=== PATIENT | female | born 1950 | race American Indian/Alaskan Native ===

== ENCOUNTER 2016-03-05 17:40 | Inpatient (IN) | payer OTHER ==
[2016-03-05 19:48] LABS: Urine Drugs of Abuse Note Disclamer
[2016-03-05 20:03] LABS: Bacteria,Urine 1+ /HPF (Negative); Bilirubin,Urine NEG (Negative); Blood,Urine MOD (Negative); Ketones,Urine 20 mg/dL (Negative); Leukocyte Esterase,Urine NEG (Negative); Mucus,Urine 2+ /HPF; Nitrite,Urine NEG (Negative); Protein,Urine <15 mg/dL mg/dL (Negative); Urobilinogen,Urine < 2.0 mg/dL (<2.0)
[2016-03-05 20:16] LABS: Basophils % (Auto) 0.8 % (0.0-1.8); Eosinophils % (Auto) 1.9 % (0.0-4.3); Hematocrit 39.1 % (30.3-42.9); Hemoglobin 13.1 gm/dl (10.1-14.3); Mean Corpuscular HGB Conc 33 % (30-34); Mean Corpuscular Hemoglobin 30 pg (28-32); Mean Corpuscular Volume 91 fl (79-97); Platelet Count 350 K/mm3 (140-440); Red Blood Count 4.32 M/mm3 (3.65-5.03); Red Cell Distribution Width 14.4 % (13.2-15.2); White Blood Count 9.8 K/mm3 (4.5-11.0)
[2016-03-05 20:41] LABS: Alanine Aminotransferase 13 units/L (7-56); Albumin 3.5 g/dL (3.9-5); Alkaline Phosphatase 134 units/L (35-129); BUN/Creatinine Ratio 14.44; Bilirubin,Total 0.9 mg/dL (0.1-1.2); Blood Urea Nitrogen 13 mg/dL (7-17); Calcium 10.3 mg/dL (8.4-10.2); Carbon Dioxide 21 mmol/L (22-30); Chloride 105.3 mmol/L (98-107); Glucose 101 mg/dL (65-100); Magnesium 1.8 mg/dL (1.7-2.3); Potassium 3.9 mmol/L (3.6-5.0); Sodium 143 mmol/L (137-145); Total Protein 6.9 g/dL (6.3-8.2)
[2016-03-05] MEDS ORDERED: BENADRYL IV ONE (20:42)
--- NOTE | 2016-03-05 20:59 | Emergency Department Report ---
ED Altered Mental Status HPI - General Chief Complaint: Altered Mental Status Stated Complaint: UNRESPONSIVE Time Seen by Provider: 03/05/16 20:04 Source: EMS Mode of arrival: Stretcher Limitations: Altered Mental Status - History of Present Illness Initial Comments: 65-year-old female with past medical history [id number] diabetes, GERD, hypertension, schizoaffective disorder, and bipolar presents to the hospital with altered mental status at patient's baseline she is usually yelling and screaming. Patient became less responsive today. Patient is not verbal in the ED therefore unable to provide any history of present illness. Per MAR patient has been on Cipro since March 03 for UTI. Patient also receiving a anti-psychotics. Leroy vital signs reported BP 172/89, pulse 109, sat 92%, respiratory rate 28 - Related Data Home Medications Medication Instructions Recorded Confirmed Last Taken Ciprofloxacin HCl [Ciprofloxacin 500 mg PO BID 03/05/16 03/05/16 03/05/16 TAB] Levothyroxine [Synthroid] 50 mcg PO QAM 03/05/16 03/05/16 Unknown [place] Carbonate 600 mg PO BID 03/05/16 03/05/16 Unknown Metoprolol [Lopressor TAB] 50 mg PO QAM 03/05/16 03/05/16 Unknown OLANzapine [ZyPREXA] 10 mg PO QHS 03/05/16 03/05/16 Unknown Olanzapine [ZyPREXA] 10 mg PO BID 03/05/16 03/05/16 Unknown Simvastatin [Zocor TAB] 10 mg PO QHS 03/05/16 03/05/16 Unknown Ziprasidone HCl [Geodon] 80 mg PO BID 03/05/16 03/05/16 Unknown Ziprasidone Mesylate [Geodon] 20 mg IM PRN PRN 03/05/16 03/05/16 Unknown amLODIPine [Norvasc] 5 mg PO DAILY 03/05/16 03/05/16 Unknown metFORMIN [Glucophage] 500 mg PO BID 03/05/16 03/05/16 Unknown Allergies Allergy/AdvReac Type Severity Reaction Status Date / Time No Known Allergies Allergy Verified 03/05/16 21:34 ED Review of Systems ROS: Stated complaint: UNRESPONSIVE Other details as noted in HPI Comment: Unobtainable due to pts medical conditions (ams) ED Past Medical Hx - Past Medical History Previous Medical History?: Yes Hx Hypertension: Yes Hx Diabetes: Yes Hx GERD: Yes Hx Psychiatric Treatment: Yes (bipolar) Additional medical history: Dyslipidemia Jv, schizoaffective disorder - Surgical History Past Surgical History?: Yes - Social History Smoking Status: Never Smoker Substance Use Type: None - Medications Home Medications: Home Medications Medication Instructions Recorded Confirmed Last Taken Type Ciprofloxacin HCl [Ciprofloxacin 500 mg PO BID 03/05/16 03/05/16 03/05/16 History TAB] Levothyroxine [Synthroid] 50 mcg PO QAM 03/05/16 03/05/16 Unknown History [place] Carbonate 600 mg PO BID 03/05/16 03/05/16 Unknown History Metoprolol [Lopressor TAB] 50 mg PO QAM 03/05/16 03/05/16 Unknown History OLANzapine [ZyPREXA] 10 mg PO QHS 03/05/16 03/05/16 Unknown History Olanzapine [ZyPREXA] 10 mg PO BID 03/05/16 03/05/16 Unknown History Simvastatin [Zocor TAB] 10 mg PO QHS 03/05/16 03/05/16 Unknown History Ziprasidone HCl [Geodon] 80 mg PO BID 03/05/16 03/05/16 Unknown History Ziprasidone Mesylate [Geodon] 20 mg IM PRN PRN 03/05/16 03/05/16 Unknown History amLODIPine [Norvasc] 5 mg PO DAILY 03/05/16 03/05/16 Unknown History metFORMIN [Glucophage] 500 mg PO BID 03/05/16 03/05/16 Unknown History ED Physical Exam - General Limitations: No Limitations, Altered Mental Status - Other Other exam information: General: Limited by mental status Head exam: Atraumatic, normocephalic Eyes exam: Pupils equal react fluttering eye motion ENT: Moist mucous membrane Neck exam: Normal inspection Respiratory exam: Clear to auscultation bilateral, no wheezes, rales, crackles Cardiovascular: Normal rate and rhythm, heart rate 95 Abdomen: Soft, nondistended, and nontender, with normal bowel sounds, no rebound, or guarding Extremity: Full range of motion normal inspection no deformity Back: Normal Inspection, full range of motion, no tenderness Neurologic: Limited response. Open eyes to command. Squeeze hand to command. When not moving extremities to command. A of eyelids questionable dystonic reaction Psychiatric: See neurologic exam Skin: Warm, dry, intact ED Course Vital Signs 03/05/16 03/05/16 03/06/16 19:27 20:29 01:36 Temperature 98.9 F Pulse Rate 102 H 105 H Respiratory 18 18 Rate Blood Pressure 153/87 Blood Pressure 146/86 [Right] O2 Sat by Pulse 96 99 100 Oximetry - Reevaluation(s) Reevaluation #1: 03/05/16 21:04 Benadryl 50mg IV ordered and treatment of possible dystonic reaction - Lab Data Result diagrams: 03/05/16 20:02 03/05/16 20:02 Lab Results 03/05/16 03/05/16 03/05/16 Range/Units 19:34 19:43 19:43 WBC (4.5-11.0) K/mm3 RBC (3.65-5.03) M/mm3 Hgb (10.1-14.3) gm/dl Hct (30.3-42.9) % MCV (79-97) fl MCH (28-32) pg MCHC (30-34) % RDW (13.2-15.2) % Plt Count (140-440) K/mm3 Lymph % (Auto) (13.4-35.0) % [place] % (Auto) (0.0-7.3) % Eos % (Auto) (0.0-4.3) % Baso % (Auto) (0.0-1.8) % Lymph # (1.2-5.4) K/mm3 [place] # (0.0-0.8) K/mm3 Eos # (0.0-0.4) K/mm3 Baso # (0.0-0.1) K/mm3 Seg Neutrophils % (40.0-70.0) % Seg Neutrophils # (1.8-7.7) K/mm3 Sodium (137-145) mmol/L Potassium (3.6-5.0) mmol/L Chloride (98-107) mmol/L Carbon Dioxide (22-30) mmol/L Anion Gap mmol/L BUN (7-17) mg/dL Creatinine (0.7-1.2) mg/dL Estimated GFR ml/min BUN/Creatinine Ratio % Glucose (65-100) mg/dL Lactic Acid (0.7-2.0) mmol/L Calcium (8.4-10.2) mg/dL Magnesium (1.7-2.3) mg/dL Total Bilirubin (0.1-1.2) mg/dL AST (5-40) units/L ALT (7-56) units/L Alkaline Phosphatase (35-129) units/L Total Protein (6.3-8.2) g/dL Albumin (3.9-5) g/dL Albumin/Globulin Ratio % TSH (0.270-4.200) mlU/mL Urine Color Yellow (Yellow) Urine Turbidity Slightly-cloudy (Clear) Urine pH 5.0 (5.0-7.0) Ur Specific [place] 1.021 (1.003-1.030) Urine Protein <15 mg/dl (Negative) mg/dL Urine Glucose (UA) Neg (Negative) mg/dL Urine Ketones 20 (Negative) mg/dL Urine Blood Mod (Negative) Urine Nitrite Neg (Negative) Urine Bilirubin Neg (Negative) Urine Urobilinogen < 2.0 (<2.0) mg/dL Ur Leukocyte Esterase Neg (Negative) Urine WBC (Auto) 7.0 H (0.0-6.0) /HPF Urine RBC (Auto) 3.0 (0.0-6.0) /HPF U Epithel Cells (Auto) 3.0 (0-13.0) /HPF Urine Bacteria (Auto) 1+ (Negative) /HPF Hyaline Casts 1 /LPF Urine Mucus 2+ /HPF Urine HCG, Qual Negative (Negative) Salicylates < 0.3 L (2.8-20.0) mg/dL Urine Opiates Screen Presumptive negative Urine Methadone Screen Presumptive negative Acetaminophen (10.0-30.0) ug/mL Ur Barbiturates Screen Presumptive negative Ur Phencyclidine Scrn Presumptive negative Ur Amphetamines Screen Presumptive negative U Benzodiazepines Scrn Presumptive negative Urine Cocaine Screen Presumptive negative U Marijuana (THC) Screen Presumptive negative Drugs of Abuse Note Disclamer Plasma/Serum Alcohol (0-0.07) gm% 03/05/16 03/05/16 03/05/16 Range/Units 20:02 20:02 20:02 WBC 9.8 (4.5-11.0) K/mm3 RBC 4.32 (3.65-5.03) M/mm3 Hgb 13.1 (10.1-14.3) gm/dl Hct 39.1 (30.3-42.9) % MCV 91 (79-97) fl MCH 30 (28-32) pg MCHC 33 (30-34) % RDW 14.4 (13.2-15.2) % Plt Count 350 (140-440) K/mm3 Lymph % (Auto) 13.5 (13.4-35.0) % [place] % (Auto) 8.3 H (0.0-7.3) % Eos % (Auto) 1.9 (0.0-4.3) % Baso % (Auto) 0.8 (0.0-1.8) % Lymph # 1.3 (1.2-5.4) K/mm3 Routt # 0.8 (0.0-0.8) K/mm3 Eos # 0.2 (0.0-0.4) K/mm3 Baso # 0.1 (0.0-0.1) K/mm3 Seg Neutrophils % 75.5 H (40.0-70.0) % Seg Neutrophils # 7.4 (1.8-7.7) K/mm3 Sodium 143 (137-145) mmol/L Potassium 3.9 (3.6-5.0) mmol/L Chloride 105.3 (98-107) mmol/L Carbon Dioxide 21 L (22-30) mmol/L Anion Gap 21 mmol/L BUN 13 (7-17) mg/dL Creatinine 0.9 (0.7-1.2) mg/dL Estimated GFR > 60 ml/min BUN/Creatinine Ratio 14.44 % Glucose 101 H (65-100) mg/dL Lactic Acid 1.4 (0.7-2.0) mmol/L Calcium 10.3 H (8.4-10.2) mg/dL Magnesium 1.8 (1.7-2.3) mg/dL Total Bilirubin 0.9 (0.1-1.2) mg/dL AST 16 (5-40) units/L ALT 13 (7-56) units/L Alkaline Phosphatase 134 H (35-129) units/L Total Protein 6.9 (6.3-8.2) g/dL Albumin 3.5 L (3.9-5) g/dL Albumin/Globulin Ratio 1.0 % TSH (0.270-4.200) mlU/mL Urine Color (Yellow) Urine Turbidity (Clear) Urine pH (5.0-7.0) Ur Specific [place] (1.003-1.030) Urine Protein (Negative) mg/dL Urine Glucose (UA) (Negative) mg/dL Urine Ketones (Negative) mg/dL Urine Blood (Negative) Urine Nitrite (Negative) Urine Bilirubin (Negative) Urine Urobilinogen (<2.0) mg/dL Ur Leukocyte Esterase (Negative) Urine WBC (Auto) (0.0-6.0) /HPF Urine RBC (Auto) (0.0-6.0) /HPF U Epithel Cells (Auto) (0-13.0) /HPF Urine Bacteria (Auto) (Negative) /HPF Hyaline Casts /LPF Urine Mucus /HPF Urine HCG, Qual (Negative) Salicylates (2.8-20.0) mg/dL Urine Opiates Screen Urine Methadone Screen Acetaminophen (10.0-30.0) ug/mL Ur Barbiturates Screen Ur Phencyclidine Scrn Ur Amphetamines Screen U Benzodiazepines Scrn Urine Cocaine Screen U Marijuana (THC) Screen Drugs of Abuse Note Plasma/Serum Alcohol (0-0.07) gm% 03/05/16 03/05/16 03/05/16 Range/Units 20:02 20:02 20:02 WBC (4.5-11.0) K/mm3 RBC (3.65-5.03) M/mm3 Hgb (10.1-14.3) gm/dl Hct (30.3-42.9) % MCV (79-97) fl MCH (28-32) pg MCHC (30-34) % RDW (13.2-15.2) % Plt Count (140-440) K/mm3 Lymph % (Auto) (13.4-35.0) % Routt % (Auto) (0.0-7.3) % Eos % (Auto) (0.0-4.3) % Baso % (Auto) (0.0-1.8) % Lymph # (1.2-5.4) K/mm3 Routt # (0.0-0.8) K/mm3 Eos # (0.0-0.4) K/mm3 Baso # (0.0-0.1) K/mm3 Seg Neutrophils % (40.0-70.0) % Seg Neutrophils # (1.8-7.7) K/mm3 Sodium (137-145) mmol/L Potassium (3.6-5.0) mmol/L Chloride (98-107) mmol/L Carbon Dioxide (22-30) mmol/L Anion Gap mmol/L BUN (7-17) mg/dL Creatinine (0.7-1.2) mg/dL Estimated GFR ml/min BUN/Creatinine Ratio % Glucose (65-100) mg/dL Lactic Acid (0.7-2.0) mmol/L Calcium (8.4-10.2) mg/dL Magnesium (1.7-2.3) mg/dL Total Bilirubin (0.1-1.2) mg/dL AST (5-40) units/L ALT (7-56) units/L Alkaline Phosphatase (35-129) units/L Total Protein (6.3-8.2) g/dL Albumin (3.9-5) g/dL Albumin/Globulin Ratio % TSH 5.160 H (0.270-4.200) mlU/mL Urine Color (Yellow) Urine Turbidity (Clear) Urine pH (5.0-7.0) Ur Specific [place] (1.003-1.030) Urine Protein (Negative) mg/dL Urine Glucose (UA) (Negative) mg/dL Urine Ketones (Negative) mg/dL Urine Blood (Negative) Urine Nitrite (Negative) Urine Bilirubin (Negative) Urine Urobilinogen (<2.0) mg/dL Ur Leukocyte Esterase (Negative) Urine WBC (Auto) (0.0-6.0) /HPF Urine RBC (Auto) (0.0-6.0) /HPF U Epithel Cells (Auto) (0-13.0) /HPF Urine Bacteria (Auto) (Negative) /HPF Hyaline Casts /LPF Urine Mucus /HPF Urine HCG, Qual (Negative) Salicylates (2.8-20.0) mg/dL Urine Opiates Screen Urine Methadone Screen Acetaminophen < 15.0 (10.0-30.0) ug/mL Ur Barbiturates Screen Ur Phencyclidine Scrn Ur Amphetamines Screen U Benzodiazepines Scrn Urine Cocaine Screen U Marijuana (THC) Screen Drugs of Abuse Note Plasma/Serum Alcohol < 0.01 (0-0.07) gm% - EKG Data -: EKG Interpreted by Me (sinus tach 101 LVH right atrial enlargement) When compared to previous EKG there are: previous EKG unavailable - Radiology Data Radiology results: report reviewed (ct head: subacute to chronic ischemic changes or suspected in the left insula) - Medical Decision Making And to admit the patient to hospital for acute altered mental status. CT shows subacute to chronic infarct. Patient, Rocephin for pressure treated UTI. Aspirin and Benadryl given in the ED - Differential Diagnosis dystonic reaction, sepsis, intracranial hemorrhage, encephalopathy Critical Care Time: No Critical care attestation.: If time is entered above; I have spent that time in minutes in the direct care of this critically ill patient, excluding procedure time. ED Disposition Clinical Impression: Diabetes, UTI (urinary tract infection) Altered mental status Qualifiers: Altered mental status type: unspecified Qualified Code(s): R41.82 - Altered mental status, unspecified Schizoaffective disorder Qualifiers: Schizoaffective disorder type: unspecified Qualified Code(s): F25.9 - Schizoaffective disorder, unspecified Bipolar disorder Qualifiers: Current episode severity: unspecified CVA (cerebral vascular accident) Qualifiers: CVA mechanism: unspecified Qualified Code(s): I63.9 - Cerebral infarction, unspecified HTN (hypertension) Qualifiers: Hypertension type: essential hypertension Qualified Code(s): I10 - Essential ( primary) hypertension Disposition: OP ADMITTED IP TO THIS HOSP Is pt being admited?: Yes Does the pt Need Aspirin: Yes Condition: Stable Time of Disposition: 21:57 (Dr Hughes/hosp)
[2016-03-05 21:20] LABS: Anion Gap 21 mmol/L
--- NOTE | 2016-03-05 21:21 | Cat Scan Report ---
FINAL REPORT PROCEDURE: CT HEAD/BRAIN WO CON TECHNIQUE: Computerized tomography of the head was performed without contrast material. HISTORY: ams COMPARISON: No prior studies are available for comparison. FINDINGS: No calvarial fracture is seen. Visualized portions of the paranasal sinuses and mastoid air cells are clear. Cerebral ventricles are normal in size. Subacute to chronic ischemic changes are seen in the left insula and there may be compensatory mild enlargement of the left sylvian fissure. No acute intracranial hemorrhage or mass effect is seen. IMPRESSION: Subacute to chronic ischemic changes are suspected in the left insula.
[2016-03-05] MEDS ORDERED: BENADRYL ONE (21:30)
[2016-03-05] MEDS ORDERED: ROCEPHIN/NS 1 GM/50 ML 50 ML IV ONE (21:52)
[2016-03-05] MEDS ORDERED: ASPIRIN PR ONE (21:54)
--- NOTE | 2016-03-05 22:05 | History and Physical Report ---
History of Present Illness Chief complaint: Confusion History of present illness: 65 YO Female admitted to [facility] with Bipolar, Shizoaffective Disorder, DM, HTN, GERD, HLD presents to ED for evaluation. Pt found to have confusion as per nursing staff. At patient's baseline- she is verbal and able to communicate. Patient became less responsive today. Patient Unable to provide history, History taken from ED staff and medical records. No reports of fever, chills, CP, palpitations, NVD, loos stools, or recent ill contacts. Past History Past Medical History: diabetes, GERD, hypertension, hyperlipidemia, other ( bipolar, schizoaffective disorder) Past Surgical History: No surgical history, Other (reviewed) Social history: single. denies: smoking, alcohol abuse, prescription drug abuse Medications and Allergies Allergies Allergy/AdvReac Type Severity Reaction Status Date / Time No Known Allergies Allergy Verified 03/05/16 21:34 Home Medications Medication Instructions Recorded Confirmed Last Taken Type Ciprofloxacin HCl [Ciprofloxacin 500 mg PO BID 03/05/16 03/05/16 03/05/16 History TAB] Levothyroxine [Synthroid] 50 mcg PO QAM 03/05/16 03/05/16 Unknown History [place] Carbonate 600 mg PO BID 03/05/16 03/05/16 Unknown History Metoprolol [Lopressor TAB] 50 mg PO QAM 03/05/16 03/05/16 Unknown History OLANzapine [ZyPREXA] 10 mg PO QHS 03/05/16 03/05/16 Unknown History Olanzapine [ZyPREXA] 10 mg PO BID 03/05/16 03/05/16 Unknown History Simvastatin [Zocor TAB] 10 mg PO QHS 03/05/16 03/05/16 Unknown History Ziprasidone HCl [Geodon] 80 mg PO BID 03/05/16 03/05/16 Unknown History Ziprasidone Mesylate [Geodon] 20 mg IM PRN PRN 03/05/16 03/05/16 Unknown History amLODIPine [Norvasc] 5 mg PO DAILY 03/05/16 03/05/16 Unknown History metFORMIN [Glucophage] 500 mg PO BID 03/05/16 03/05/16 Unknown History Active Meds: Active Medications Ceftriaxone Sodium (Rocephin/Ns 1 Gm/50 Ml) 50 mls @ 100 mls/hr IV ONCE ONE Stop: 03/05/16 22:21 Review of Systems ROS unobtainable: due to mental status Exam - Constitutional Vitals: Temp Pulse Resp BP Pulse Ox 98.9 F 102 H 18 153/87 99 03/05/16 19:27 03/05/16 19:27 03/05/16 20:29 03/05/16 19:27 03/05/16 20:29 General appearance: Present: obese - EENT Eyes: Present: PERRL ENT: hearing intact, clear oral mucosa - Neck Neck: Present: supple, normal ROM - Respiratory Respiratory effort: normal Respiratory: bilateral: CTA - Cardiovascular Heart Sounds: Present: S1 & S2. Absent: rub, click - Extremities Extremities: pulses symmetrical, No edema Peripheral Pulses: within normal limits - Abdominal General gastrointestinal: Present: soft, non-tender, non-distended, normal bowel sounds Female genitourinary: Present: normal - Integumentary Integumentary: Present: clear, warm, dry - Musculoskeletal Musculoskeletal: gait normal, strength equal bilaterally - Psychiatric Psychiatric: no intact judgment & insight, no memory intact - Neurologic Neurologic: CNII-XII intact, moves all extremities, no gait normal Results - Labs CBC & Chem 7: 03/05/16 20:02 03/06/16 06:02 Labs: Abnormal lab results 03/05/16 03/05/16 03/05/16 Range/Units 19:34 19:43 20:02 [place] % (Auto) 8.3 H (0.0-7.3) % Seg Neutrophils % 75.5 H (40.0-70.0) % Carbon Dioxide (22-30) mmol/L Glucose (65-100) mg/dL Calcium (8.4-10.2) mg/dL Alkaline Phosphatase (35-129) units/L Albumin (3.9-5) g/dL TSH (0.270-4.200) mlU/mL Urine WBC (Auto) 7.0 H (0.0-6.0) /HPF Salicylates < 0.3 L (2.8-20.0) mg/dL 03/05/16 03/05/16 Range/Units 20:02 20:02 [place] % (Auto) (0.0-7.3) % Seg Neutrophils % (40.0-70.0) % Carbon Dioxide 21 L (22-30) mmol/L Glucose 101 H (65-100) mg/dL Calcium 10.3 H (8.4-10.2) mg/dL Alkaline Phosphatase 134 H (35-129) units/L Albumin 3.5 L (3.9-5) g/dL TSH 5.160 H (0.270-4.200) mlU/mL Urine WBC (Auto) (0.0-6.0) /HPF Salicylates (2.8-20.0) mg/dL Assessment and Plan - Patient Problems (1) UTI (urinary tract infection) Current Visit: Yes Status: Acute Plan to address problem: IV abx, ivf, supportive care, (2) Bipolar disorder Current Visit: Yes Status: Acute Qualifiers: Current episode severity: unspecified Plan to address problem: psych consulted, resume home medication (3) Diabetes Current Visit: Yes Status: Acute Plan to address problem: ADA diet, insulin, accu check (4) HTN (hypertension) Current Visit: Yes Status: Acute Qualifiers: Hypertension type: essential hypertension Qualified Code(s): I10 - Essential (primary) hypertension Plan to address problem: monitor bp q shift, (5) Schizoaffective disorder Current Visit: Yes Status: Acute Qualifiers: Schizoaffective disorder type: unspecified Qualified Code(s): F25.9 - Schizoaffective disorder, unspecified Plan to address problem: psych consulted, (6) DVT prophylaxis Current Visit: Yes Status: Acute
[2016-03-05] MEDS ORDERED: TYLENOL PO PRN (22:08)
[2016-03-05] MEDS ORDERED: APRESOLINE IV PRN (22:11)
[2016-03-05] MEDS ORDERED: ATIVAN IV PRN (22:13)
[2016-03-06] MEDS ORDERED: TYLENOL PR ONE (00:06)
[2016-03-06] MEDS ORDERED: ASPIRIN PR ONE (00:09)
--- NOTE | 2016-03-06 02:34 | Admit Criteria Form ---
Admission Criteria Documentation: MENTAL STATUS CHANGE Clinical Indications for Inpatient Care (Place 'X' for any and all applicable criteria): Ongoing inpatient care may be needed for ANY ONE of the following(1)(2)(3)(5)(6) : [X ]I. Suspected serious etiology (eg, medical disorder, [employer] event) of mental status change [ ]II. Danger to self or others not manageable at lower level of care [ ]III. Grave disability (eg, inability to perform self care necessary at lower level of care) [ ]IV. Agitation or inappropriate behavior interfering with care for primary condition (eg, attempting to discontinue lines or drains prematurely, unable to cooperate with respiratory care) [ ]V. Delirium [A] [D][E] as described by ANY ONE of the following(26): [ ]a) Delirium due to alcohol or sedative [F] withdrawal [ ]b) Delirium of uncertain etiology that has not responded to appropriate empiric treatment [ ]c) Delirium that prevents performance of a life-sustaining function (eg, feeding or hydrating oneself) [ ]. General contraindications and/or Inappropriate clinical situations for Observational Care in patients with Mental Status Change, when ANY ONE of the following is required: [ ]a) Prediction of prolongation of LOS based on ANY ONE of the following may be considered as a contraindication for observational care 2, 3, 4, 5, 6, 7, 8, 9, 10, 11 [ ]i) Age > 65 yrs. [ ]ii) Patient arriving by ambulance [ ]iii) Patient with high acuity [ ]iv) Patient requiring vital sign monitoring [ ]v) Patient on IV medication [ ]b) Systolic blood pressures 180mmHg 3,12 [ ]c) Patient with altered mental status including delirium and other alteration of consciousness, (3) [ ]d) Patient whose discharge disposition will be to a senior living home or rehabilitation home should not be managed in Emergency Department Observation Unit. CMS rule requires 3 days hospital stay before such placement.3,13 [ ]e) Patient with failure to thrive due to broad array of etiologies 3,16,17 [ ]f) Inability to ambulate 3,14 Extended stay beyond goal length of stay for the primary condition may be needed until ALL of the following are present(3)(5): [ ]a) Underlying medical etiology of mental status change is absent, or has been established and adequately treated [ ]b) Danger to self or others is absent or manageable at lower level of care. [ ]c) Behavior crisis management, including physical or chemical restraints, is not required or available at lower level of car [ ]d) Substance or alcohol withdrawal is absent or manageable at lower level of care. [ ]e) Behavioral symptoms (eg, agitation, somnolence, inappropriate behavior) are absent, or are manageable at lower level of care. The original [facility] content created by [facility] has been revised. The portions of the content which have been revised are identified through the use of italic text or in bold, and [facility] has neither reviewed nor approved the modified material. All other unmodified content is copyright [facility]. Please see references footnoted in the original [facility] edition 2016
[2016-03-06 07:31] LABS: Anion Gap 25 mmol/L; BUN/Creatinine Ratio 17.77; Blood Urea Nitrogen 16 mg/dL (7-17); Calcium 10.7 mg/dL (8.4-10.2); Carbon Dioxide 21 mmol/L (22-30); Chloride 105.1 mmol/L (98-107); Glucose 108 mg/dL (65-100); Sodium 147 mmol/L (137-145)
--- NOTE | 2016-03-06 14:57 | Progress Note ---
Assessment and Plan Assessment and plan: Patient is 65-year-old woman from [facility] with a history of diabetes mellitus type 2, hypertension, hypothyroidism, schizoaffective and bipolar disorder who presents with altered mental status. Her baseline mental status is yelling and screaming now she is nonverbal. She was been treated for UTI with Cipro at the psych facility; therefore. IV Rocephin was started. 03/15 CT head without contrast: Subacute to chronic ischemic changes are suspected in the left insula. There is no history of prior stroke, no prior records in our electronic medical records. Pulse ox this morning dropped to 87 % on room air, patient was given oxygen, pulse ox increased to 96%. She was having dystonic type movements in ED and was IV Benadryl in the emergency department. She is tachycardic. Ordered stat EKG and remote telemetry. 1. Altered mental status with acute encephalopathy, present on admission 2. Acute CVA with infarct suspected: MRI brain, check lipids swallow screen, echo, carotid Dopplers physical therapy, no neurologist available this weekend. 3. Acute hypoxic respiratory failure, present on admission: Treated with oxygen 4. Bipolar and schizoaffective disorder: Psych has been consulted, hold antipsychotics due to dyskinesia 5. DVT prophylaxis: scd Full code Disposition: Continue inpatient care History Interval history: Patient seen and examined. Follow up on AMS. Overnight uneventful. No cp, sob, n /v or severe headaches. Imaging, old records, testing, labs, nursing notes reviewed. Hospitalist Physical - Physical exam Narrative exam: GEN: ill appearing drooling NAD, somnolent HEENT: NCAT, left downward eye gaze, NECK: SUPPLE, NO THYROMEGALY, NO JVD, NO LAD CVS: tachycardic, NORMAL S1S2 LUNGS/CHEST: CTA B, NORMAL CHEST EXPANSION B, GOOD AIR ENTRY B ABD: SOFT NTND, GBS, NO REBOUND OR GUARDING EXT/SKIN: NO SIGNIFICANT EDEMA OR RASH MSK: facial dystonia/flexing NEURO: CN 2-12 GROSSLY INTACT, not following commands PSY: confused - Constitutional Vitals: Temp Pulse Resp BP Pulse Ox 99.2 F 150 H 24 145/72 94 03/06/16 08:23 03/06/16 08:23 03/06/16 08:30 03/06/16 08:23 03/06/16 08:53 General appearance: Present: obese Results - Labs CBC & Chem 7: 03/05/16 20:02 03/06/16 06:02 Labs: Laboratory Last Values WBC 9.8 K/mm3 (4.5-11.0) 03/05/16 20:02 RBC 4.32 M/mm3 (3.65-5.03) 03/05/16 20:02 Hgb 13.1 gm/dl (10.1-14.3) 03/05/16 20:02 Hct 39.1 % (30.3-42.9) 03/05/16 20:02 MCV 91 fl (79-97) 03/05/16 20:02 MCH 30 pg (28-32) 03/05/16 20:02 MCHC 33 % (30-34) 03/05/16 20:02 RDW 14.4 % (13.2-15.2) 03/05/16 20:02 Plt Count 350 K/mm3 (140-440) 03/05/16 20:02 Lymph % (Auto) 13.5 % (13.4-35.0) 03/05/16 20:02 [place] % (Auto) 8.3 % (0.0-7.3) H 03/05/16 20:02 Eos % (Auto) 1.9 % (0.0-4.3) 03/05/16 20:02 Baso % (Auto) 0.8 % (0.0-1.8) 03/05/16 20:02 Lymph # 1.3 K/mm3 (1.2-5.4) 03/05/16 20:02 [place] # 0.8 K/mm3 (0.0-0.8) 03/05/16 20:02 Eos # 0.2 K/mm3 (0.0-0.4) 03/05/16 20:02 Baso # 0.1 K/mm3 (0.0-0.1) 03/05/16 20:02 Seg Neutrophils % 75.5 % (40.0-70.0) H 03/05/16 20:02 Seg Neutrophils # 7.4 K/mm3 (1.8-7.7) 03/05/16 20:02 Sodium 147 mmol/L (137-145) H 03/06/16 06:02 Potassium 4.0 mmol/L (3.6-5.0) 03/06/16 06:02 Chloride 105.1 mmol/L (98-107) 03/06/16 06:02 Carbon Dioxide 21 mmol/L (22-30) L 03/06/16 06:02 Anion Gap 25 mmol/L 03/06/16 06:02 BUN 16 mg/dL (7-17) 03/06/16 06:02 Creatinine 0.9 mg/dL (0.7-1.2) 03/06/16 06:02 Estimated GFR > 60 ml/min 03/06/16 06:02 BUN/Creatinine Ratio 17.77 % 03/06/16 06:02 Glucose 108 mg/dL (65-100) H 03/06/16 06:02 POC Glucose 95 (70-105) 03/06/16 06:26 Lactic Acid 1.6 mmol/L (0.7-2.0) 03/05/16 22:35 Calcium 10.7 mg/dL (8.4-10.2) H 03/06/16 06:02 Magnesium 1.8 mg/dL (1.7-2.3) 03/05/16 20:02 Total Bilirubin 0.9 mg/dL (0.1-1.2) 03/05/16 20:02 AST 16 units/L (5-40) 03/05/16 20:02 ALT 13 units/L (7-56) 03/05/16 20:02 Alkaline Phosphatase 134 units/L (35-129) H 03/05/16 20:02 Total Protein 6.9 g/dL (6.3-8.2) 03/05/16 20:02 Albumin 3.5 g/dL (3.9-5) L 03/05/16 20:02 Albumin/Globulin Ratio 1.0 % 03/05/16 20:02 TSH 5.160 mlU/mL (0.270-4.200) H 03/05/16 20:02 Urine Color Yellow (Yellow) 03/05/16 19:43 Urine Turbidity Slightly-cloudy (Clear) 03/05/16 19:43 Urine pH 5.0 (5.0-7.0) 03/05/16 19:43 Ur Specific [place] 1.021 (1.003-1.030) 03/05/16 19:43 Urine Protein <15 mg/dl mg/dL (Negative) 03/05/16 19:43 Urine Glucose (UA) Neg mg/dL (Negative) 03/05/16 19:43 Urine Ketones 20 mg/dL (Negative) 03/05/16 19:43 Urine Blood Mod (Negative) 03/05/16 19:43 Urine Nitrite Neg (Negative) 03/05/16 19:43 Urine Bilirubin Neg (Negative) 03/05/16 19:43 Urine Urobilinogen < 2.0 mg/dL (<2.0) 03/05/16 19:43 Ur Leukocyte Esterase Neg (Negative) 03/05/16 19:43 Urine WBC (Auto) 7.0 /HPF (0.0-6.0) H 03/05/16 19:43 Urine RBC (Auto) 3.0 /HPF (0.0-6.0) 03/05/16 19:43 U Epithel Cells (Auto) 3.0 /HPF (0-13.0) 03/05/16 19:43 Urine Bacteria (Auto) 1+ /HPF (Negative) 03/05/16 19:43 Hyaline Casts 1 /LPF 03/05/16 19:43 Urine Mucus 2+ /HPF 03/05/16 19:43 Urine HCG, Qual Negative (Negative) 03/05/16 19:43 Salicylates < 0.3 mg/dL (2.8-20.0) L 03/05/16 19:34 Urine Opiates Screen Presumptive negative 03/05/16 19:43 Urine Methadone Screen Presumptive negative 03/05/16 19:43 Acetaminophen < 15.0 ug/mL (10.0-30.0) 03/05/16 20:02 Ur Barbiturates Screen Presumptive negative 03/05/16 19:43 Ur Phencyclidine Scrn Presumptive negative 03/05/16 19:43 Ur Amphetamines Screen Presumptive negative 03/05/16 19:43 U Benzodiazepines Scrn Presumptive negative 03/05/16 19:43 Urine Cocaine Screen Presumptive negative 03/05/16 19:43 U Marijuana (THC) Screen Presumptive negative 03/05/16 19:43 Drugs of Abuse Note Disclamer 03/05/16 19:43 Plasma/Serum Alcohol < 0.01 gm% (0-0.07) 03/05/16 20:02
--- NOTE | 2016-03-06 16:57 | Magnetic Resonance Report ---
FINAL REPORT PROCEDURE: MR MRA/MRV HEAD WO CON TECHNIQUE: Axial 3-D [id number] MR angiography of the [place] and brain was performed. The source images were reconstructed in various views using maximum intensity projection. HISTORY: stroke COMPARISON: None FINDINGS: Motion limits the study despite repeat imaging. Vertebral arteries appear codominant without suggestion of significant stenosis. Posterior communicating arteries are not seen and anterior communicating artery is not identified but this may be from motion. All of the attempts at imaging suggest diminished signal in the right ICA in the cavernous region that may represent mild stenosis here. Likely very minimal narrowing of the left ICA is seen in the left cavernous region. Motion artifact likely causes loss of signal in the ICAs at the level of the skullbase bilaterally. Distal MCA and TOYIN branches are not well evaluated due to the motion. No obvious aneurysm is seen. 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 Motion limits this exam.
--- NOTE | 2016-03-06 17:18 | Magnetic Resonance Report ---
FINAL REPORT PROCEDURE: MR BRAIN WO CON TECHNIQUE: Magnetic resonance imaging of the brain was performed without contrast material. HISTORY: stroke COMPARISON: CT exam from March 05, 2016 FINDINGS: Cerebellar tonsils are normally positioned. Cerebral ventricles are normal in size. No areas of restricted diffusion are seen. Motion limits the study. Minimal increased T2 signal is seen in the left insula possibly due to old ischemic changes. A few other punctate foci of increased T2 signal are seen in the periventricular white matter likely due to chronic small vessel ischemic changes. No evidence of intracranial hemorrhage is seen. No fluid is seen in the paranasal sinuses or mastoid air cells. IMPRESSION: Mild old ischemic changes are seen without evidence of acute abnormality.
[2016-03-06] MEDS: ASPIRIN PO SCH (17:39)
[2016-03-06] MEDS: ROCEPHIN/NS 1 GM/50 ML 50 ML IV SCH (22:58)
[2016-03-06] MEDS: HEPARIN SUB-Q SCH (22:59)
[2016-03-07] MEDS: ATIVAN IV PRN (00:52)
[2016-03-07 06:27] LABS: Hematocrit 41.4 % (30.3-42.9); Hemoglobin 13.1 gm/dl (10.1-14.3); Mean Corpuscular HGB Conc 32 % (30-34); Mean Corpuscular Hemoglobin 29 pg (28-32); Mean Corpuscular Volume 91 fl (79-97); Platelet Count 370 K/mm3 (140-440); Red Blood Count 4.52 M/mm3 (3.65-5.03); Red Cell Distribution Width 14.6 % (13.2-15.2); White Blood Count 12.7 K/mm3 (4.5-11.0)
[2016-03-07 06:50] LABS: BUN/Creatinine Ratio 21.66; Calcium 10.6 mg/dL (8.4-10.2); Chloride 109.8 mmol/L (98-107); Potassium 3.8 mmol/L (3.6-5.0)
[2016-03-07] MEDS: D5W 1,000 ML IV SCH ×2 (10:20→23:36)
[2016-03-07] MEDS: HEPARIN SUB-Q SCH ×2 (10:20→22:31)
[2016-03-07] MEDS: ASPIRIN PO SCH (10:20)
--- NOTE | 2016-03-07 11:45 | Progress Note ---
Assessment and Plan Assessment and plan: Patient is 65-year-old woman from [facility] with a history of diabetes mellitus type 2, hypertension, hypothyroidism, schizoaffective and bipolar disorder who presents with altered mental status. Her baseline mental status is yelling and screaming now she is nonverbal. She was been treated for UTI with Cipro at the psych facility; therefore. IV Rocephin was started. 03/15 CT head without contrast: Subacute to chronic ischemic changes are suspected in the left insula. There is no history of prior stroke, no prior records in our electronic medical records. Pulse ox this morning dropped to 87 % on room air, patient was given oxygen, pulse ox increased to 96%. She was having dystonic type movements in ED and was IV Benadryl in the emergency department. She is tachycardic. Ordered stat EKG and remote telemetry. 1. Altered mental status with acute encephalopathy, present on admission 2. Acute CVA with infarct suspected: MRI brain, check lipids swallow screen, echo, carotid Dopplers physical therapy, no neurologist available this weekend. ==>?late [place] of old CVA 3. Acute hypoxic respiratory failure, present on admission: Treated with oxygen 4. Bipolar and schizoaffective disorder: Psych has been consulted, hold antipsychotics due to dyskinesia which has resolved. 5. DVT prophylaxis: scd Full code Disposition: Continue inpatient care Patient needs psychiatric and neurological evaluation (tomorrow, Neurologist is Dr. Almaraz is rounding from 6pm-10pm), MRI just shows old CVA without any history of CVA, echo pending, new issue of hypernatremia will be treated with D5W also elevated creatinine level recheck BMP in a.m. will order EEG History Interval history: Patient seen and examined. Follow up on AMS. Overnight uneventful. No cp, sob, n /v or severe headaches. Imaging, old records, testing, labs, nursing notes reviewed. Hospitalist Physical - Physical exam Narrative exam: GEN: Obese no acute respiratory distress, looks much better today, awake and alert but not talking HEENT: NCAT, no gaze preference today NECK: SUPPLE, NO THYROMEGALY, NO JVD, NO LAD CVS: tachycardic, NORMAL S1S2 LUNGS/CHEST: CTA B, NORMAL CHEST EXPANSION B, GOOD AIR ENTRY B ABD: SOFT NTND, GBS, NO REBOUND OR GUARDING EXT/SKIN: NO SIGNIFICANT EDEMA OR RASH MSK: facial dystonia/flexing resolved NEURO: CN 2-12 GROSSLY INTACT, not following commands PSY: confused - Constitutional Vitals: Temp Pulse Resp BP Pulse Ox 99.7 F H 97 H 20 145/87 94 03/07/16 08:00 03/07/16 08:00 03/07/16 08:00 03/07/16 08:00 03/07/16 09:34 General appearance: Present: obese Results - Labs CBC & Chem 7: 03/07/16 05:31 03/07/16 05:31 Labs: Laboratory Last Values WBC 12.7 K/mm3 (4.5-11.0) H 03/07/16 05:31 RBC 4.52 M/mm3 (3.65-5.03) 03/07/16 05:31 Hgb 13.1 gm/dl (10.1-14.3) 03/07/16 05:31 Hct 41.4 % (30.3-42.9) 03/07/16 05:31 MCV 91 fl (79-97) 03/07/16 05:31 MCH 29 pg (28-32) 03/07/16 05:31 MCHC 32 % (30-34) 03/07/16 05:31 RDW 14.6 % (13.2-15.2) 03/07/16 05:31 Plt Count 370 K/mm3 (140-440) 03/07/16 05:31 Lymph % (Auto) 13.5 % (13.4-35.0) 03/05/16 20:02 [place] % (Auto) 8.3 % (0.0-7.3) H 03/05/16 20:02 Eos % (Auto) 1.9 % (0.0-4.3) 03/05/16 20:02 Baso % (Auto) 0.8 % (0.0-1.8) 03/05/16 20:02 Lymph # 1.3 K/mm3 (1.2-5.4) 03/05/16 20:02 [place] # 0.8 K/mm3 (0.0-0.8) 03/05/16 20:02 Eos # 0.2 K/mm3 (0.0-0.4) 03/05/16 20:02 Baso # 0.1 K/mm3 (0.0-0.1) 03/05/16 20:02 Seg Neutrophils % 75.5 % (40.0-70.0) H 03/05/16 20:02 Seg Neutrophils # 7.4 K/mm3 (1.8-7.7) 03/05/16 20:02 Sodium 150 mmol/L (137-145) H 03/07/16 05:31 Potassium 3.8 mmol/L (3.6-5.0) 03/07/16 05:31 Chloride 109.8 mmol/L (98-107) H 03/07/16 05:31 Carbon Dioxide 26 mmol/L (22-30) 03/07/16 05:31 Anion Gap 18 mmol/L 03/07/16 05:31 BUN 26 mg/dL (7-17) H 03/07/16 05:31 Creatinine 1.2 mg/dL (0.7-1.2) 03/07/16 05:31 Estimated GFR 55 ml/min 03/07/16 05:31 BUN/Creatinine Ratio 21.66 % 03/07/16 05:31 Glucose 106 mg/dL (65-100) H 03/07/16 05:31 POC Glucose 95 (70-105) 03/06/16 06:26 Lactic Acid 1.6 mmol/L (0.7-2.0) 03/05/16 22:35 Calcium 10.6 mg/dL (8.4-10.2) H 03/07/16 05:31 Magnesium 1.8 mg/dL (1.7-2.3) 03/05/16 20:02 Total Bilirubin 0.9 mg/dL (0.1-1.2) 03/05/16 20:02 AST 16 units/L (5-40) 03/05/16 20:02 ALT 13 units/L (7-56) 03/05/16 20:02 Alkaline Phosphatase 134 units/L (35-129) H 03/05/16 20:02 Total Protein 6.9 g/dL (6.3-8.2) 03/05/16 20:02 Albumin 3.5 g/dL (3.9-5) L 03/05/16 20:02 Albumin/Globulin Ratio 1.0 % 03/05/16 20:02 Triglycerides 174 mg/dL (2-149) H 03/07/16 05:31 Cholesterol 149 mg/dL (50-199) 03/07/16 05:31 LDL Cholesterol Direct 82 mg/dL (50-130) 03/07/16 05:31 HDL Cholesterol 33 mg/dL (40-59) L 03/07/16 05:31 Cholesterol/HDL Ratio 4.51 % 03/07/16 05:31 TSH 5.160 mlU/mL (0.270-4.200) H 03/05/16 20:02 Urine Color Yellow (Yellow) 03/05/16 19:43 Urine Turbidity Slightly-cloudy (Clear) 03/05/16 19:43 Urine pH 5.0 (5.0-7.0) 03/05/16 19:43 Ur Specific [place] 1.021 (1.003-1.030) 03/05/16 19:43 Urine Protein <15 mg/dl mg/dL (Negative) 03/05/16 19:43 Urine Glucose (UA) Neg mg/dL (Negative) 03/05/16 19:43 Urine Ketones 20 mg/dL (Negative) 03/05/16 19:43 Urine Blood Mod (Negative) 03/05/16 19:43 Urine Nitrite Neg (Negative) 03/05/16 19:43 Urine Bilirubin Neg (Negative) 03/05/16 19:43 Urine Urobilinogen < 2.0 mg/dL (<2.0) 03/05/16 19:43 Ur Leukocyte Esterase Neg (Negative) 03/05/16 19:43 Urine WBC (Auto) 7.0 /HPF (0.0-6.0) H 03/05/16 19:43 Urine RBC (Auto) 3.0 /HPF (0.0-6.0) 03/05/16 19:43 U Epithel Cells (Auto) 3.0 /HPF (0-13.0) 03/05/16 19:43 Urine Bacteria (Auto) 1+ /HPF (Negative) 03/05/16 19:43 Hyaline Casts 1 /LPF 03/05/16 19:43 Urine Mucus 2+ /HPF 03/05/16 19:43 Urine HCG, Qual Negative (Negative) 03/05/16 19:43 Salicylates < 0.3 mg/dL (2.8-20.0) L 03/05/16 19:34 Urine Opiates Screen Presumptive negative 03/05/16 19:43 Urine Methadone Screen Presumptive negative 03/05/16 19:43 Acetaminophen < 15.0 ug/mL (10.0-30.0) 03/05/16 20:02 Ur Barbiturates Screen Presumptive negative 03/05/16 19:43 Ur Phencyclidine Scrn Presumptive negative 03/05/16 19:43 Ur Amphetamines Screen Presumptive negative 03/05/16 19:43 U Benzodiazepines Scrn Presumptive negative 03/05/16 19:43 Urine Cocaine Screen Presumptive negative 03/05/16 19:43 U Marijuana (THC) Screen Presumptive negative 03/05/16 19:43 Drugs of Abuse Note Disclamer 03/05/16 19:43 Plasma/Serum Alcohol < 0.01 gm% (0-0.07) 03/05/16 20:02
[2016-03-07] MEDS: ROCEPHIN/NS 1 GM/50 ML 50 ML IV SCH (22:30)
[2016-03-08 06:26] LABS: Hematocrit 39.9 % (30.3-42.9); Hemoglobin 12.7 gm/dl (10.1-14.3); Mean Corpuscular HGB Conc 32 % (30-34); Mean Corpuscular Hemoglobin 29 pg (28-32); Mean Corpuscular Volume 91 fl (79-97); Platelet Count 322 K/mm3 (140-440); Red Blood Count 4.38 M/mm3 (3.65-5.03); Red Cell Distribution Width 14.2 % (13.2-15.2); White Blood Count 10.9 K/mm3 (4.5-11.0)
[2016-03-08 06:42] LABS: Anion Gap 13 mmol/L; BUN/Creatinine Ratio 25.55; Blood Urea Nitrogen 23 mg/dL (7-17); Calcium 10.6 mg/dL (8.4-10.2); Carbon Dioxide 29 mmol/L (22-30); Chloride 109.5 mmol/L (98-107); Glucose 132 mg/dL (65-100); Potassium 3.5 mmol/L (3.6-5.0); Sodium 148 mmol/L (137-145)
--- NOTE | 2016-03-08 07:21 | Consultation ---
History of Present Illness Consult date: 03/08/16 Chief complaint: AMS History of present illness: This is a 65 YO F with a history of psychiatric illness who presents with AMS. APparently her baaseline is screaming a nd yelling but she has been nonverbal. History is as per chart. On my arrival she is sleeping but when aroused she starts yelling and moaning. Does not follow any commands. Past History Past Medical History: diabetes, GERD, hypertension, hyperlipidemia, other ( bipolar, schizoaffective disorder) Past Surgical History: No surgical history, Other (reviewed) Social history: single. denies: smoking, alcohol abuse, prescription drug abuse Medications and Allergies Allergies Allergy/AdvReac Type Severity Reaction Status Date / Time No Known Allergies Allergy Verified 03/05/16 21:34 Home Medications Medication Instructions Recorded Confirmed Last Taken Type Ciprofloxacin HCl [Ciprofloxacin 500 mg PO BID 03/05/16 03/05/16 03/05/16 History TAB] Levothyroxine [Synthroid] 50 mcg PO QAM 03/05/16 03/05/16 Unknown History [place] Carbonate 600 mg PO BID 03/05/16 03/05/16 Unknown History Metoprolol [Lopressor TAB] 50 mg PO QAM 03/05/16 03/05/16 Unknown History OLANzapine [ZyPREXA] 10 mg PO QHS 03/05/16 03/05/16 Unknown History Olanzapine [ZyPREXA] 10 mg PO BID 03/05/16 03/05/16 Unknown History Simvastatin [Zocor TAB] 10 mg PO QHS 03/05/16 03/05/16 Unknown History Ziprasidone HCl [Geodon] 80 mg PO BID 03/05/16 03/05/16 Unknown History Ziprasidone Mesylate [Geodon] 20 mg IM PRN PRN 03/05/16 03/05/16 Unknown History amLODIPine [Norvasc] 5 mg PO DAILY 03/05/16 03/05/16 Unknown History metFORMIN [Glucophage] 500 mg PO BID 03/05/16 03/05/16 Unknown History Active Meds: Active Medications Acetaminophen (Tylenol) 650 mg PO Q4H PRN PRN Reason: Pain MILD(1-3)/Fever >100.5/MORGAN Aspirin (Aspirin) 325 mg PO QDAY RAMÓN Last Admin: 03/07/16 10:20 Dose: 325 mg Atorvastatin Calcium (Lipitor) 20 mg PO QHS [facility] Last Admin: 03/07/16 22:31 Dose: 20 mg Heparin Sodium (Porcine) (Heparin) 5,000 unit SUB-Q Q12HR [facility] Last Admin: 03/07/16 22:31 Dose: 5,000 unit Hydralazine HCl (Apresoline) 10 mg IV Q6HR PRN PRN Reason: Hypertension Ceftriaxone Sodium (Rocephin/Ns 1 Gm/50 Ml) 50 mls @ 100 mls/hr IV Q24H RAMÓN PRN Reason: Protocol Last Admin: 03/07/16 22:30 Dose: 100 mls/hr Dextrose (D5w) 1,000 mls @ 75 mls/hr IV DIRECT RAMÓN Last Admin: 03/07/16 23:36 Dose: 75 mls/hr Lorazepam (Ativan) 1 mg IV Q4H PRN PRN Reason: Agitation Last Admin: 03/07/16 00:52 Dose: 1 mg Review of Systems ROS unobtainable: due to mental status Physical Examination - Vital Signs Vital Signs: Vital Signs Temp Pulse BP Pulse Ox 98.9 F 102 H 153/87 96 03/05/16 19:27 03/05/16 19:27 03/05/16 19:27 03/05/16 19:27 - EENT EENT: Present: ATNC - Respiratory Respiratory: Present: lungs clear - Cardiovascular Cardiovascular: Present: normal S1, normal S2 - Neurologic Cranial nerve examination: PERRL, EOMI, V1/V2/V3 grossly intact, face symmetric Detailed motor examination: grossly full strength in Reflexes: 0: ankle, bicep, knee, tricep Results - Laboratory Findings CBC and BMP: 03/08/16 05:39 03/08/16 05:39 Abnormal Lab Findings: Abnormal Labs 03/06/16 03/07/16 03/07/16 06:02 05:31 05:31 WBC 12.7 H Sodium 147 H 150 H Potassium Chloride 109.8 H Carbon Dioxide 21 L BUN 26 H Glucose 108 H 106 H Calcium 10.7 H 10.6 H Triglycerides 174 H HDL Cholesterol 33 L 03/08/16 05:39 WBC Sodium 148 H Potassium 3.5 L Chloride 109.5 H Carbon Dioxide BUN 23 H Glucose 132 H Calcium 10.6 H Triglycerides HDL Cholesterol Assessment and Plan This is a 65 YO F with encephalopathy, possibly due to her infection vs other. Recommend: Would check [place] level and adjust as necessary check EEG ammonia level, b 12, rpr MRI Brain if possible Continue care for her medical and psychiatric issues as you are doing. Avoid sedating meds if possible. Thank you for this consult. Please call with questions.
[2016-03-08] MEDS: HEPARIN SUB-Q SCH ×2 (10:27→22:53)
[2016-03-08] MEDS: ATIVAN IV PRN (10:27)
[2016-03-08] MEDS: ASPIRIN PO SCH (10:28)
--- NOTE | 2016-03-08 12:38 | Echocardiography Report ---
Transthoracic Echocardiogram BP: 153/81 Findings Procedure Info: The study quality is technically difficult. The study is technically limited due to patient body habitus. The study was technically limited due to the patient's inability to lay in the left lateral decubitus position. Left Ventricle: The left ventricular chamber size is normal. Mild to moderate concentric left ventricular hypertrophy is observed. Global left ventricular wall motion and contractility are within normal limits. Global left ventricular systolic function is normal. The estimated ejection fraction is 60-65%. Normal left ventricular diastolic filling is observed. Left Atrium: The left atrial chamber size is normal. Right Ventricle: The right ventricular cavity size is normal. The right ventricular global systolic function is normal. Right Atrium: The right atrial cavity size is normal. The interatrial septum appears normal. Aortic Valve: The aortic valve is trileaflet. The aortic valve leaflets are mildly thickened. There is trace of aortic regurgitation. There is no evidence of aortic stenosis. Mitral Valve: The mitral valve leaflets appear myxomatous. The mitral valve leaflets are mildly thickened. There is mild mitral regurgitation. There is no evidence of mitral stenosis. Tricuspid Valve: The tricuspid valve leaflets are normal. There is trace tricuspid regurgitation. No pulmonary hypertension is noted. There is no tricuspid stenosis. Pulmonic Valve: The pulmonic valve appears normal. There is no evidence of pulmonic regurgitation. There is no pulmonic stenosis. Pericardium: There is no pericardial effusion. Aorta: There is no dilatation of the ascending aorta. There is no dilatation of the aortic arch. There is no dilatation of the descending thoracic aorta. There is no dilatation of the aortic root. Venous: The inferior vena cava is not visualized. Measurements Chambers MM Name Value Normal Range Ao root diameter (MM) 3.1 cm (2 - 3.7) AV cusp separation (MM) 2.2 cm (1.5 - 2.6) Chambers 2D Name Value Normal Range IVSd (2D) 1.2 cm (0.6 - 1.1) LVPWd (2D) 1.2 cm (0.6 - 1.1) IVS:LVPW ratio (2D) 1 ratio - LVIDd (2D) 4.14 cm (3.7 - 5.6) LVIDs (2D) 2.51 cm (2 - 3.8) LV FS (Teichholz) (2D) 39.4 % - LV FS (cube) (2D) 39.4 % - EF Te[place]holz (2D) 70.4 % - LA dimension (AP) 2D 4 cm (1.9 - 4) Volumes/Mass Name Value Normal Range LA ESV SP 4CH (MOD) 36 ml - LA ESV SP 2CH (MOD) 26 ml - LV EDV SP 4CH (MOD) 87 ml - LV ESV SP 4CH (MOD) 37 ml - EF SP 4CH (MOD) 57 % - Diastolic/Systolic Function Name Value Normal Range MV E-wave Vmax 0.58 m/sec - MV deceleration time 141 msec - MV A-wave Vmax 0.99 m/sec - MV E:A ratio 0.6 ratio - LV septal e' Vmax 0.06 m/sec - LV lateral e' Vmax 0.06 m/sec - LV E:e' septal ratio 9.9 ratio - LV E:e' lateral ratio 9.2 ratio - Aortic Valve Name Value Normal Range AV VTI 27 cm - AV mean gradient 8 mmHg - LVOT diameter 2 cm - LVOT VTI 24.2 cm - LVOT mean gradient 6 mmHg - SV LVOT 76 ml - PALMER (continuity VTI) 2.81 cm2 - Tricuspid Valve Name Value Normal Range TR Vmax 2.05 m/sec - TR peak gradient 17 mmHg - RAP 5 mmHg - RVSP 22 mmHg -
--- NOTE | 2016-03-08 15:26 | Progress Note ---
Assessment and Plan Assessment and plan: Patient is 65-year-old woman from [facility] with a history of diabetes mellitus type 2, hypertension, hypothyroidism, schizoaffective and bipolar disorder who presents with altered mental status. She is now back to her baseline mental status. She was been treated for UTI with Cipro at the psych facility;she was hypoxic to 87% on admission. She was having dystonic type movements in ED and was IV Benadryl in the emergency department. She is tachycardic. Ordered stat EKG and remote telemetry. 1. Altered mental status with acute encephalopathy, present on admission, most likely from [place] toxicity; neuro input appreciated, labs reviewed, Li level elevated at 1.6, B12 , NH3 and CK wnl, MR and MRA brain unremarkable, fup EEG, fup RPR 2. Hyponatremia and Hypokalemia: continue D5w and oral Potassium supplement 3. Acute hypoxic respiratory failure, present on admission: has now resolved, weaned off oxygen 4. Bipolar and schizoaffective disorder: Psych has been consulted, hold antipsychotics due to dyskinesia and Li toxicity which has resolved. 5. UTI; completed empiric rx for UTI 6. HTN; begin a diuretic History Interval history: screaming and yelling, not obeying commands; back to baseline mentation, no events overnight Hospitalist Physical - Physical exam Narrative exam: General: Patient appears well in no distress HEENT: MMM, EOMI cardiac: S1-S2 heard lungs: clear to auscultation, abdomen: soft, nontender, nondistended bowel sounds positive extremities: no edema clubbing or cyanosis Skin: no rash or lesion Neuro: Moves all extremities, not following commands, screaming and yelling Psych: Confused - Constitutional Vitals: Temp Pulse Resp BP Pulse Ox 98.4 F 78 18 146/94 97 03/08/16 08:00 03/08/16 08:00 03/08/16 08:00 03/08/16 08:00 03/08/16 09:06 General appearance: Present: obese Results - Labs CBC & Chem 7: 03/08/16 05:39 03/09/16 09:32 Labs: Laboratory Last Values WBC 10.9 K/mm3 (4.5-11.0) 03/08/16 05:39 RBC 4.38 M/mm3 (3.65-5.03) 03/08/16 05:39 Hgb 12.7 gm/dl (10.1-14.3) 03/08/16 05:39 Hct 39.9 % (30.3-42.9) 03/08/16 05:39 MCV 91 fl (79-97) 03/08/16 05:39 MCH 29 pg (28-32) 03/08/16 05:39 MCHC 32 % (30-34) 03/08/16 05:39 RDW 14.2 % (13.2-15.2) 03/08/16 05:39 Plt Count 322 K/mm3 (140-440) 03/08/16 05:39 Lymph % (Auto) 13.5 % (13.4-35.0) 03/05/16 20:02 [place] % (Auto) 8.3 % (0.0-7.3) H 03/05/16 20:02 Eos % (Auto) 1.9 % (0.0-4.3) 03/05/16 20:02 Baso % (Auto) 0.8 % (0.0-1.8) 03/05/16 20:02 Lymph # 1.3 K/mm3 (1.2-5.4) 03/05/16 20:02 [place] # 0.8 K/mm3 (0.0-0.8) 03/05/16 20:02 Eos # 0.2 K/mm3 (0.0-0.4) 03/05/16 20:02 Baso # 0.1 K/mm3 (0.0-0.1) 03/05/16 20:02 Seg Neutrophils % 75.5 % (40.0-70.0) H 03/05/16 20:02 Seg Neutrophils # 7.4 K/mm3 (1.8-7.7) 03/05/16 20:02 Sodium 148 mmol/L (137-145) H 03/08/16 05:39 Potassium 3.5 mmol/L (3.6-5.0) L 03/08/16 05:39 Chloride 109.5 mmol/L (98-107) H 03/08/16 05:39 Carbon Dioxide 29 mmol/L (22-30) 03/08/16 05:39 Anion Gap 13 mmol/L 03/08/16 05:39 BUN 23 mg/dL (7-17) H 03/08/16 05:39 Creatinine 0.9 mg/dL (0.7-1.2) 03/08/16 05:39 Estimated GFR > 60 ml/min 03/08/16 05:39 BUN/Creatinine Ratio 25.55 % 03/08/16 05:39 Glucose 132 mg/dL (65-100) H 03/08/16 05:39 POC Glucose 100 (70-105) 03/07/16 11:52 Lactic Acid 1.6 mmol/L (0.7-2.0) 03/05/16 22:35 Calcium 10.6 mg/dL (8.4-10.2) H 03/08/16 05:39 Magnesium 1.8 mg/dL (1.7-2.3) 03/05/16 20:02 Total Bilirubin 0.9 mg/dL (0.1-1.2) 03/05/16 20:02 AST 16 units/L (5-40) 03/05/16 20:02 ALT 13 units/L (7-56) 03/05/16 20:02 Alkaline Phosphatase 134 units/L (35-129) H 03/05/16 20:02 Total Protein 6.9 g/dL (6.3-8.2) 03/05/16 20:02 Albumin 3.5 g/dL (3.9-5) L 03/05/16 20:02 Albumin/Globulin Ratio 1.0 % 03/05/16 20:02 Triglycerides 174 mg/dL (2-149) H 03/07/16 05:31 Cholesterol 149 mg/dL (50-199) 03/07/16 05:31 LDL Cholesterol Direct 82 mg/dL (50-130) 03/07/16 05:31 HDL Cholesterol 33 mg/dL (40-59) L 03/07/16 05:31 Cholesterol/HDL Ratio 4.51 % 03/07/16 05:31 TSH 5.160 mlU/mL (0.270-4.200) H 03/05/16 20:02 Urine Color Yellow (Yellow) 03/05/16 19:43 Urine Turbidity Slightly-cloudy (Clear) 03/05/16 19:43 Urine pH 5.0 (5.0-7.0) 03/05/16 19:43 Ur Specific [place] 1.021 (1.003-1.030) 03/05/16 19:43 Urine Protein <15 mg/dl mg/dL (Negative) 03/05/16 19:43 Urine Glucose (UA) Neg mg/dL (Negative) 03/05/16 19:43 Urine Ketones 20 mg/dL (Negative) 03/05/16 19:43 Urine Blood Mod (Negative) 03/05/16 19:43 Urine Nitrite Neg (Negative) 03/05/16 19:43 Urine Bilirubin Neg (Negative) 03/05/16 19:43 Urine Urobilinogen < 2.0 mg/dL (<2.0) 03/05/16 19:43 Ur Leukocyte Esterase Neg (Negative) 03/05/16 19:43 Urine WBC (Auto) 7.0 /HPF (0.0-6.0) H 03/05/16 19:43 Urine RBC (Auto) 3.0 /HPF (0.0-6.0) 03/05/16 19:43 U Epithel Cells (Auto) 3.0 /HPF (0-13.0) 03/05/16 19:43 Urine Bacteria (Auto) 1+ /HPF (Negative) 03/05/16 19:43 Hyaline Casts 1 /LPF 03/05/16 19:43 Urine Mucus 2+ /HPF 03/05/16 19:43 Urine HCG, Qual Negative (Negative) 03/05/16 19:43 Salicylates < 0.3 mg/dL (2.8-20.0) L 03/05/16 19:34 Urine Opiates Screen Presumptive negative 03/05/16 19:43 Urine Methadone Screen Presumptive negative 03/05/16 19:43 Acetaminophen < 15.0 ug/mL (10.0-30.0) 03/05/16 20:02 Ur Barbiturates Screen Presumptive negative 03/05/16 19:43 Ur Phencyclidine Scrn Presumptive negative 03/05/16 19:43 Ur Amphetamines Screen Presumptive negative 03/05/16 19:43 U Benzodiazepines Scrn Presumptive negative 03/05/16 19:43 Urine Cocaine Screen Presumptive negative 03/05/16 19:43 U Marijuana (THC) Screen Presumptive negative 03/05/16 19:43 Drugs of Abuse Note Disclamer 03/05/16 19:43 Plasma/Serum Alcohol < 0.01 gm% (0-0.07) 03/05/16 20:02
[2016-03-08] MEDS ORDERED: K-DUR PO ONE (16:00)
[2016-03-08] MEDS: D5W 1,000 ML IV SCH (18:07)
[2016-03-09] MEDS ORDERED: ZOFRAN IV PRN (02:03)
--- NOTE | 2016-03-09 07:47 | Vascular Lab Report ---
CAROTID DUPLEX STUDY: RIGHT PSVEDV CCA PROX:[id number] CCA DIST:9328 ICA PROX:6816 ICA MID:4916 ICA DIST:5222 ECA: 138 VERT: 49 13 LEFT PSVEDV CCA PROX:17792 CCA DIST:9424 ICA PROX:6020 ICA MID:8524 ICA DIST:7425 ECA: 125 VERT: 58 17 REASON FOR EXAM: Stroke. COMMENTS ON THE RIGHT: Doppler frequency analysis is consistent with 16 to 49 percent diameter reduction of the internal carotid artery. Minimal amount of plaque is seen. The common carotid artery is patent. The external carotid artery is patent. The vertebral artery has antegrade flow. COMMENTS ON THE LEFT: Doppler frequency analysis is consistent with 16 to 49 percent diameter reduction of the internal carotid artery. Minimal amount of plaque is seen. The common carotid artery is patent. The external carotid artery is patent. The vertebral artery has antegrade flow. IMPRESSION: Less than 50% diameter reduction in the internal carotid arteries bilaterally. Consider repeat carotid artery duplex in 12 months.
[2016-03-09] MEDS: ATIVAN IV PRN ×2 (10:00→17:19)
[2016-03-09 10:59] LABS: Anion Gap 14 mmol/L; Blood Urea Nitrogen 18 mg/dL (7-17); Calcium 10.5 mg/dL (8.4-10.2); Carbon Dioxide 28 mmol/L (22-30); Chloride 108.7 mmol/L (98-107); Glucose 125 mg/dL (65-100); Magnesium 2.3 mg/dL (1.7-2.3); Potassium 4.1 mmol/L (3.6-5.0); Sodium 147 mmol/L (137-145)
[2016-03-09] MEDS: HEPARIN SUB-Q SCH ×2 (11:00→22:01)
[2016-03-09] MEDS: ASPIRIN PO SCH (14:56)
[2016-03-10] MEDS: ASPIRIN PO SCH (12:09)
[2016-03-10] MEDS: HEPARIN SUB-Q SCH ×2 (12:10→22:13)
[2016-03-10] MEDS: HCTZ PO SCH (12:17)
--- NOTE | 2016-03-10 17:05 | Progress Note ---
Assessment and Plan Assessment and plan: Patient is 65-year-old woman from [facility] with a history of diabetes mellitus type 2, hypertension, hypothyroidism, schizoaffective and bipolar disorder who presents with altered mental status. She is now back to her baseline mental status. She was been treated for UTI with Cipro at the psych facility;she was hypoxic to 87% on admission. She was having dystonic type movements in ED and was IV Benadryl in the emergency department. She is tachycardic. Ordered stat EKG and remote telemetry. 1. Altered mental status with acute encephalopathy, present on admission, most likely from [place] toxicity; neuro input appreciated, labs reviewed, Li level elevated at 1.6, B12 , NH3 and CK wnl, MR and MRA brain unremarkable, fup EEG, fup RPR 2. Hyponatremia and Hypokalemia: continue D5w and oral Potassium supplement 3. Acute hypoxic respiratory failure, present on admission: has now resolved, weaned off oxygen 4. Bipolar and schizoaffective disorder: Psych has been consulted, hold antipsychotics due to dyskinesia and Li toxicity which has resolved. 5. UTI; completed empiric rx for UTI 6. HTN; begin a diuretic History Interval history: screaming and yelling, not obeying commands; back to baseline mentation, no events overnight Hospitalist Physical - Physical exam Narrative exam: General: Patient appears well in no distress HEENT: MMM, EOMI cardiac: S1-S2 heard lungs: clear to auscultation, abdomen: soft, nontender, nondistended bowel sounds positive extremities: no edema clubbing or cyanosis Skin: no rash or lesion Neuro: Moves all extremities, not following commands, screaming and yelling Psych: Confused - Constitutional Vitals: Temp Pulse Resp BP Pulse Ox 98.6 F 70 16 172/105 96 03/10/16 07:10 03/10/16 07:10 03/10/16 07:10 03/10/16 07:10 03/10/16 08:20 General appearance: Present: obese Results - Labs CBC & Chem 7: 03/08/16 05:39 03/09/16 09:32 Labs: Laboratory Last Values WBC 10.9 K/mm3 (4.5-11.0) 03/08/16 05:39 RBC 4.38 M/mm3 (3.65-5.03) 03/08/16 05:39 Hgb 12.7 gm/dl (10.1-14.3) 03/08/16 05:39 Hct 39.9 % (30.3-42.9) 03/08/16 05:39 MCV 91 fl (79-97) 03/08/16 05:39 MCH 29 pg (28-32) 03/08/16 05:39 MCHC 32 % (30-34) 03/08/16 05:39 RDW 14.2 % (13.2-15.2) 03/08/16 05:39 Plt Count 322 K/mm3 (140-440) 03/08/16 05:39 Lymph % (Auto) 13.5 % (13.4-35.0) 03/05/16 20:02 [place] % (Auto) 8.3 % (0.0-7.3) H 03/05/16 20:02 Eos % (Auto) 1.9 % (0.0-4.3) 03/05/16 20:02 Baso % (Auto) 0.8 % (0.0-1.8) 03/05/16 20:02 Lymph # 1.3 K/mm3 (1.2-5.4) 03/05/16 20:02 [place] # 0.8 K/mm3 (0.0-0.8) 03/05/16 20:02 Eos # 0.2 K/mm3 (0.0-0.4) 03/05/16 20:02 Baso # 0.1 K/mm3 (0.0-0.1) 03/05/16 20:02 Seg Neutrophils % 75.5 % (40.0-70.0) H 03/05/16 20:02 Seg Neutrophils # 7.4 K/mm3 (1.8-7.7) 03/05/16 20:02 Sodium 147 mmol/L (137-145) H 03/09/16 09:32 Potassium 4.1 mmol/L (3.6-5.0) 03/09/16 09:32 Chloride 108.7 mmol/L (98-107) H 03/09/16 09:32 Carbon Dioxide 28 mmol/L (22-30) 03/09/16 09:32 Anion Gap 14 mmol/L 03/09/16 09:32 BUN 18 mg/dL (7-17) H 03/09/16 09:32 Creatinine 0.8 mg/dL (0.7-1.2) 03/09/16 09:32 Estimated GFR > 60 ml/min 03/09/16 09:32 BUN/Creatinine Ratio 22.50 % 03/09/16 09:32 Glucose 125 mg/dL (65-100) H 03/09/16 09:32 POC Glucose 100 (70-105) 03/07/16 11:52 Lactic Acid 1.6 mmol/L (0.7-2.0) 03/05/16 22:35 Calcium 10.5 mg/dL (8.4-10.2) H 03/09/16 09:32 Magnesium 2.3 mg/dL (1.7-2.3) 03/09/16 09:32 Total Bilirubin 0.9 mg/dL (0.1-1.2) 03/05/16 20:02 AST 16 units/L (5-40) 03/05/16 20:02 ALT 13 units/L (7-56) 03/05/16 20:02 Alkaline Phosphatase 134 units/L (35-129) H 03/05/16 20:02 Ammonia 45.0 umol/L (25-60) 03/08/16 17:34 Total Creatine Kinase 52 units/L (30-135) 03/08/16 17:34 Total Protein 6.9 g/dL (6.3-8.2) 03/05/16 20:02 Albumin 3.5 g/dL (3.9-5) L 03/05/16 20:02 Albumin/Globulin Ratio 1.0 % 03/05/16 20:02 Triglycerides 174 mg/dL (2-149) H 03/07/16 05:31 Cholesterol 149 mg/dL (50-199) 03/07/16 05:31 LDL Cholesterol Direct 82 mg/dL (50-130) 03/07/16 05:31 HDL Cholesterol 33 mg/dL (40-59) L 03/07/16 05:31 Cholesterol/HDL Ratio 4.51 % 03/07/16 05:31 Vitamin B12 1685 pg/mL (211-911) H 03/08/16 17:41 TSH 5.160 mlU/mL (0.270-4.200) H 03/05/16 20:02 Urine Color Yellow (Yellow) 03/05/16 19:43 Urine Turbidity Slightly-cloudy (Clear) 03/05/16 19:43 Urine pH 5.0 (5.0-7.0) 03/05/16 19:43 Ur Specific [place] 1.021 (1.003-1.030) 03/05/16 19:43 Urine Protein <15 mg/dl mg/dL (Negative) 03/05/16 19:43 Urine Glucose (UA) Neg mg/dL (Negative) 03/05/16 19:43 Urine Ketones 20 mg/dL (Negative) 03/05/16 19:43 Urine Blood Mod (Negative) 03/05/16 19:43 Urine Nitrite Neg (Negative) 03/05/16 19:43 Urine Bilirubin Neg (Negative) 03/05/16 19:43 Urine Urobilinogen < 2.0 mg/dL (<2.0) 03/05/16 19:43 Ur Leukocyte Esterase Neg (Negative) 03/05/16 19:43 Urine WBC (Auto) 7.0 /HPF (0.0-6.0) H 03/05/16 19:43 Urine RBC (Auto) 3.0 /HPF (0.0-6.0) 03/05/16 19:43 U Epithel Cells (Auto) 3.0 /HPF (0-13.0) 03/05/16 19:43 Urine Bacteria (Auto) 1+ /HPF (Negative) 03/05/16 19:43 Hyaline Casts 1 /LPF 03/05/16 19:43 Urine Mucus 2+ /HPF 03/05/16 19:43 Urine HCG, Qual Negative (Negative) 03/05/16 19:43 Salicylates < 0.3 mg/dL (2.8-20.0) L 03/05/16 19:34 Urine Opiates Screen Presumptive negative 03/05/16 19:43 Urine Methadone Screen Presumptive negative 03/05/16 19:43 Acetaminophen < 15.0 ug/mL (10.0-30.0) 03/05/16 20:02 Ur Barbiturates Screen Presumptive negative 03/05/16 19:43 Ur Phencyclidine Scrn Presumptive negative 03/05/16 19:43 Ur Amphetamines Screen Presumptive negative 03/05/16 19:43 U Benzodiazepines Scrn Presumptive negative 03/05/16 19:43 [place] 1.6 mmol/L (0.0-1.2) H* 03/08/16 17:42 Urine Cocaine Screen Presumptive negative 03/05/16 19:43 U Marijuana (THC) Screen Presumptive negative 03/05/16 19:43 Drugs of Abuse Note Disclamer 03/05/16 19:43 Plasma/Serum Alcohol < 0.01 gm% (0-0.07) 03/05/16 20:02 RPR Nonreactive (Nonreactive) 03/08/16 17:34
--- NOTE | 2016-03-11 08:32 | Progress Note ---
Assessment and Plan Assessment and plan: Patient is 65-year-old woman from [facility] with a history of diabetes mellitus type 2, hypertension, hypothyroidism, schizoaffective and bipolar disorder who presents with altered mental status, she was obtunded as opposed to her Baseline mentation which is screaming and yelling usually. She was found to have lithium toxicity, Li was dc and she was rx with IVF. She is now back to her baseline mental status. She was been treated for UTI with Cipro at the psych facility;she was hypoxic to 87% on admission due to metabolic encephalopathy, she was treated with supplemental oxygen, this has how resolved. 1. Altered mental status with acute encephalopathy, present on admission, most likely from [place] toxicity; neuro input appreciated, labs reviewed, Li level elevated at 1.6, B12 , NH3 and CK wnl, MR and MRA brain unremarkable, now back to baseline mentation, 2. Hyponatremia and Hypokalemia: continue D5w and oral Potassium supplement 3. Acute hypoxic respiratory failure, present on admission: has now resolved, weaned off oxygen 4. Bipolar and schizoaffective disorder: Psych has been consulted, hold antipsychotics due to dyskinesia and Li toxicity which has resolved. 5. UTI; completed empiric rx for UTI 6. HTN; continue HCtz History Interval history: screaming and yelling, not obeying commands; back to baseline mentation, no events overnight Hospitalist Physical - Physical exam Narrative exam: General: Patient appears well in no distress HEENT: MMM, EOMI cardiac: S1-S2 heard lungs: clear to auscultation, abdomen: soft, nontender, nondistended bowel sounds positive extremities: no edema clubbing or cyanosis Skin: no rash or lesion Neuro: Moves all extremities, not following commands, screaming and yelling Psych: Confused - Constitutional Vitals: Temp Pulse Resp BP Pulse Ox 97.9 F 70 20 117/68 99 03/11/16 07:15 03/11/16 07:15 03/11/16 07:15 03/11/16 07:15 03/11/16 07:15 General appearance: Present: obese Results - Labs CBC & Chem 7: 03/08/16 05:39 03/09/16 09:32 Labs: Laboratory Last Values WBC 10.9 K/mm3 (4.5-11.0) 03/08/16 05:39 RBC 4.38 M/mm3 (3.65-5.03) 03/08/16 05:39 Hgb 12.7 gm/dl (10.1-14.3) 03/08/16 05:39 Hct 39.9 % (30.3-42.9) 03/08/16 05:39 MCV 91 fl (79-97) 03/08/16 05:39 MCH 29 pg (28-32) 03/08/16 05:39 MCHC 32 % (30-34) 03/08/16 05:39 RDW 14.2 % (13.2-15.2) 03/08/16 05:39 Plt Count 322 K/mm3 (140-440) 03/08/16 05:39 Lymph % (Auto) 13.5 % (13.4-35.0) 03/05/16 20:02 [place] % (Auto) 8.3 % (0.0-7.3) H 03/05/16 20:02 Eos % (Auto) 1.9 % (0.0-4.3) 03/05/16 20:02 Baso % (Auto) 0.8 % (0.0-1.8) 03/05/16 20:02 Lymph # 1.3 K/mm3 (1.2-5.4) 03/05/16 20:02 [place] # 0.8 K/mm3 (0.0-0.8) 03/05/16 20:02 Eos # 0.2 K/mm3 (0.0-0.4) 03/05/16 20:02 Baso # 0.1 K/mm3 (0.0-0.1) 03/05/16 20:02 Seg Neutrophils % 75.5 % (40.0-70.0) H 03/05/16 20:02 Seg Neutrophils # 7.4 K/mm3 (1.8-7.7) 03/05/16 20:02 Sodium 147 mmol/L (137-145) H 03/09/16 09:32 Potassium 4.1 mmol/L (3.6-5.0) 03/09/16 09:32 Chloride 108.7 mmol/L (98-107) H 03/09/16 09:32 Carbon Dioxide 28 mmol/L (22-30) 03/09/16 09:32 Anion Gap 14 mmol/L 03/09/16 09:32 BUN 18 mg/dL (7-17) H 03/09/16 09:32 Creatinine 0.8 mg/dL (0.7-1.2) 03/09/16 09:32 Estimated GFR > 60 ml/min 03/09/16 09:32 BUN/Creatinine Ratio 22.50 % 03/09/16 09:32 Glucose 125 mg/dL (65-100) H 03/09/16 09:32 POC Glucose 100 (70-105) 03/07/16 11:52 Lactic Acid 1.6 mmol/L (0.7-2.0) 03/05/16 22:35 Calcium 10.5 mg/dL (8.4-10.2) H 03/09/16 09:32 Magnesium 2.3 mg/dL (1.7-2.3) 03/09/16 09:32 Total Bilirubin 0.9 mg/dL (0.1-1.2) 03/05/16 20:02 AST 16 units/L (5-40) 03/05/16 20:02 ALT 13 units/L (7-56) 03/05/16 20:02 Alkaline Phosphatase 134 units/L (35-129) H 03/05/16 20:02 Ammonia 45.0 umol/L (25-60) 03/08/16 17:34 Total Creatine Kinase 52 units/L (30-135) 03/08/16 17:34 Total Protein 6.9 g/dL (6.3-8.2) 03/05/16 20:02 Albumin 3.5 g/dL (3.9-5) L 03/05/16 20:02 Albumin/Globulin Ratio 1.0 % 03/05/16 20:02 Triglycerides 174 mg/dL (2-149) H 03/07/16 05:31 Cholesterol 149 mg/dL (50-199) 03/07/16 05:31 LDL Cholesterol Direct 82 mg/dL (50-130) 03/07/16 05:31 HDL Cholesterol 33 mg/dL (40-59) L 03/07/16 05:31 Cholesterol/HDL Ratio 4.51 % 03/07/16 05:31 Vitamin B12 1685 pg/mL (211-911) H 03/08/16 17:41 TSH 5.160 mlU/mL (0.270-4.200) H 03/05/16 20:02 Urine Color Yellow (Yellow) 03/05/16 19:43 Urine Turbidity Slightly-cloudy (Clear) 03/05/16 19:43 Urine pH 5.0 (5.0-7.0) 03/05/16 19:43 Ur Specific [place] 1.021 (1.003-1.030) 03/05/16 19:43 Urine Protein <15 mg/dl mg/dL (Negative) 03/05/16 19:43 Urine Glucose (UA) Neg mg/dL (Negative) 03/05/16 19:43 Urine Ketones 20 mg/dL (Negative) 03/05/16 19:43 Urine Blood Mod (Negative) 03/05/16 19:43 Urine Nitrite Neg (Negative) 03/05/16 19:43 Urine Bilirubin Neg (Negative) 03/05/16 19:43 Urine Urobilinogen < 2.0 mg/dL (<2.0) 03/05/16 19:43 Ur Leukocyte Esterase Neg (Negative) 03/05/16 19:43 Urine WBC (Auto) 7.0 /HPF (0.0-6.0) H 03/05/16 19:43 Urine RBC (Auto) 3.0 /HPF (0.0-6.0) 03/05/16 19:43 U Epithel Cells (Auto) 3.0 /HPF (0-13.0) 03/05/16 19:43 Urine Bacteria (Auto) 1+ /HPF (Negative) 03/05/16 19:43 Hyaline Casts 1 /LPF 03/05/16 19:43 Urine Mucus 2+ /HPF 03/05/16 19:43 Urine HCG, Qual Negative (Negative) 03/05/16 19:43 Salicylates < 0.3 mg/dL (2.8-20.0) L 03/05/16 19:34 Urine Opiates Screen Presumptive negative 03/05/16 19:43 Urine Methadone Screen Presumptive negative 03/05/16 19:43 Acetaminophen < 15.0 ug/mL (10.0-30.0) 03/05/16 20:02 Ur Barbiturates Screen Presumptive negative 03/05/16 19:43 Ur Phencyclidine Scrn Presumptive negative 03/05/16 19:43 Ur Amphetamines Screen Presumptive negative 03/05/16 19:43 U Benzodiazepines Scrn Presumptive negative 03/05/16 19:43 [place] 1.6 mmol/L (0.0-1.2) H* 03/08/16 17:42 Urine Cocaine Screen Presumptive negative 03/05/16 19:43 U Marijuana (THC) Screen Presumptive negative 03/05/16 19:43 Drugs of Abuse Note Disclamer 03/05/16 19:43 Plasma/Serum Alcohol < 0.01 gm% (0-0.07) 03/05/16 20:02 RPR Nonreactive (Nonreactive) 03/08/16 17:34
[2016-03-11 09:02] LABS: BUN/Creatinine Ratio 11.66; Blood Urea Nitrogen 7 mg/dL (7-17); Calcium 9.9 mg/dL (8.4-10.2); Carbon Dioxide 28 mmol/L (22-30); Chloride 101.1 mmol/L (98-107); Glucose 132 mg/dL (65-100); Potassium 3.5 mmol/L (3.6-5.0); Sodium 141 mmol/L (137-145)
[2016-03-11 09:04] LABS: Anion Gap 15 mmol/L
[2016-03-11] MEDS: ASPIRIN PO SCH (09:20)
[2016-03-11] MEDS: HEPARIN SUB-Q SCH ×2 (09:25→22:49)
[2016-03-11] MEDS: HCTZ PO SCH (09:25)
[2016-03-11 10:31] LABS: Hematocrit 39.3 % (30.3-42.9); Hemoglobin 13.2 gm/dl (10.1-14.3); Mean Corpuscular HGB Conc 34 % (30-34); Mean Corpuscular Hemoglobin 30 pg (28-32); Mean Corpuscular Volume 89 fl (79-97); Red Cell Distribution Width 13.9 % (13.2-15.2); White Blood Count 10.3 K/mm3 (4.5-11.0)
[2016-03-11 10:32] LABS: Platelet Count 216 K/mm3 (140-440)
[2016-03-11] MEDS: D5W 1,000 ML IV SCH (16:34)
[2016-03-12] MEDS: D5W 1,000 ML IV SCH ×2 (07:34→22:51)
[2016-03-12] MEDS: ASPIRIN PO SCH (09:15)
[2016-03-12] MEDS: HCTZ PO SCH (09:16)
[2016-03-12] MEDS: HEPARIN SUB-Q SCH ×2 (09:16→22:44)
--- NOTE | 2016-03-12 16:13 | Progress Note ---
Assessment and Plan Assessment and plan: Patient is 65-year-old woman from [facility] with a history of diabetes mellitus type 2, hypertension, hypothyroidism, schizoaffective and bipolar disorder who presents with altered mental status, she was obtunded as opposed to her Baseline mentation which is screaming and yelling usually. She was found to have lithium toxicity, Li was dc and she was rx with IVF. She is now back to her baseline mental status. She was been treated for UTI with Cipro at the psych facility;she was hypoxic to 87% on admission due to metabolic encephalopathy, she was treated with supplemental oxygen, this has how resolved. 1. Altered mental status with acute encephalopathy, present on admission, most likely from [place] toxicity; neuro input appreciated, labs reviewed, Li level elevated at 1.6, B12 , NH3 and CK wnl, MR and MRA brain unremarkable, now back to baseline mentation 2. Hypernatremia and Hypokalemia: continue D5w and oral Potassium supplement 3. Acute hypoxic respiratory failure, present on admission: has now resolved, weaned off oxygen 4. Bipolar and schizoaffective disorder: Psych has been consulted, hold antipsychotics due to dyskinesia and Li toxicity which has resolved. 5. UTI; completed empiric rx for UTI 6. HTN; continue HCtz History Interval history: Interval improvement, she is now calm and appropriate, responsive, pleasant and obeying commands Hospitalist Physical - Physical exam Narrative exam: General: Patient appears well in no distress HEENT: MMM, EOMI cardiac: S1-S2 heard lungs: clear to auscultation, abdomen: soft, nontender, nondistended bowel sounds positive extremities: no edema clubbing or cyanosis Skin: no rash or lesion Neuro: no focal deficit, obeying commands, oriented to person and place Psych: appropriate and pleasant - Constitutional Vitals: Temp Pulse Resp BP Pulse Ox 98.1 F 68 20 127/70 95 03/12/16 08:00 03/12/16 08:00 03/12/16 08:00 03/12/16 08:00 03/12/16 08:00 General appearance: Present: obese Results - Labs CBC & Chem 7: 03/11/16 10:18 03/11/16 08:25 Labs: Laboratory Last Values WBC 10.3 K/mm3 (4.5-11.0) 03/11/16 10:18 RBC 4.40 M/mm3 (3.65-5.03) 03/11/16 10:18 Hgb 13.2 gm/dl (10.1-14.3) 03/11/16 10:18 Hct 39.3 % (30.3-42.9) 03/11/16 10:18 MCV 89 fl (79-97) 03/11/16 10:18 MCH 30 pg (28-32) 03/11/16 10:18 MCHC 34 % (30-34) 03/11/16 10:18 RDW 13.9 % (13.2-15.2) 03/11/16 10:18 Plt Count 216 K/mm3 (140-440) 03/11/16 10:18 Lymph % (Auto) 13.5 % (13.4-35.0) 03/05/16 20:02 [place] % (Auto) 8.3 % (0.0-7.3) H 03/05/16 20:02 Eos % (Auto) 1.9 % (0.0-4.3) 03/05/16 20:02 Baso % (Auto) 0.8 % (0.0-1.8) 03/05/16 20:02 Lymph # 1.3 K/mm3 (1.2-5.4) 03/05/16 20:02 [place] # 0.8 K/mm3 (0.0-0.8) 03/05/16 20:02 Eos # 0.2 K/mm3 (0.0-0.4) 03/05/16 20:02 Baso # 0.1 K/mm3 (0.0-0.1) 03/05/16 20:02 Seg Neutrophils % 75.5 % (40.0-70.0) H 03/05/16 20:02 Seg Neutrophils # 7.4 K/mm3 (1.8-7.7) 03/05/16 20:02 Sodium 141 mmol/L (137-145) 03/11/16 08:25 Potassium 3.5 mmol/L (3.6-5.0) L 03/11/16 08:25 Chloride 101.1 mmol/L (98-107) 03/11/16 08:25 Carbon Dioxide 28 mmol/L (22-30) 03/11/16 08:25 Anion Gap 15 mmol/L 03/11/16 08:25 BUN 7 mg/dL (7-17) 03/11/16 08:25 Creatinine 0.6 mg/dL (0.7-1.2) L 03/11/16 08:25 Estimated GFR > 60 ml/min 03/11/16 08:25 BUN/Creatinine Ratio 11.66 % 03/11/16 08:25 Glucose 132 mg/dL (65-100) H 03/11/16 08:25 POC Glucose 123 (70-105) H 03/12/16 12:54 Lactic Acid 1.6 mmol/L (0.7-2.0) 03/05/16 22:35 Calcium 9.9 mg/dL (8.4-10.2) 03/11/16 08:25 Magnesium 1.9 mg/dL (1.7-2.3) 03/11/16 08:25 Total Bilirubin 0.9 mg/dL (0.1-1.2) 03/05/16 20:02 AST 16 units/L (5-40) 03/05/16 20:02 ALT 13 units/L (7-56) 03/05/16 20:02 Alkaline Phosphatase 134 units/L (35-129) H 03/05/16 20:02 Ammonia 45.0 umol/L (25-60) 03/08/16 17:34 Total Creatine Kinase 52 units/L (30-135) 03/08/16 17:34 Total Protein 6.9 g/dL (6.3-8.2) 03/05/16 20:02 Albumin 3.5 g/dL (3.9-5) L 03/05/16 20:02 Albumin/Globulin Ratio 1.0 % 03/05/16 20:02 Triglycerides 174 mg/dL (2-149) H 03/07/16 05:31 Cholesterol 149 mg/dL (50-199) 03/07/16 05:31 LDL Cholesterol Direct 82 mg/dL (50-130) 03/07/16 05:31 HDL Cholesterol 33 mg/dL (40-59) L 03/07/16 05:31 Cholesterol/HDL Ratio 4.51 % 03/07/16 05:31 Vitamin B12 1685 pg/mL (211-911) H 03/08/16 17:41 TSH 5.160 mlU/mL (0.270-4.200) H 03/05/16 20:02 Urine Color Yellow (Yellow) 03/05/16 19:43 Urine Turbidity Slightly-cloudy (Clear) 03/05/16 19:43 Urine pH 5.0 (5.0-7.0) 03/05/16 19:43 Ur Specific [place] 1.021 (1.003-1.030) 03/05/16 19:43 Urine Protein <15 mg/dl mg/dL (Negative) 03/05/16 19:43 Urine Glucose (UA) Neg mg/dL (Negative) 03/05/16 19:43 Urine Ketones 20 mg/dL (Negative) 03/05/16 19:43 Urine Blood Mod (Negative) 03/05/16 19:43 Urine Nitrite Neg (Negative) 03/05/16 19:43 Urine Bilirubin Neg (Negative) 03/05/16 19:43 Urine Urobilinogen < 2.0 mg/dL (<2.0) 03/05/16 19:43 Ur Leukocyte Esterase Neg (Negative) 03/05/16 19:43 Urine WBC (Auto) 7.0 /HPF (0.0-6.0) H 03/05/16 19:43 Urine RBC (Auto) 3.0 /HPF (0.0-6.0) 03/05/16 19:43 U Epithel Cells (Auto) 3.0 /HPF (0-13.0) 03/05/16 19:43 Urine Bacteria (Auto) 1+ /HPF (Negative) 03/05/16 19:43 Hyaline Casts 1 /LPF 03/05/16 19:43 Urine Mucus 2+ /HPF 03/05/16 19:43 Urine HCG, Qual Negative (Negative) 03/05/16 19:43 Salicylates < 0.3 mg/dL (2.8-20.0) L 03/05/16 19:34 Urine Opiates Screen Presumptive negative 03/05/16 19:43 Urine Methadone Screen Presumptive negative 03/05/16 19:43 Acetaminophen < 15.0 ug/mL (10.0-30.0) 03/05/16 20:02 Ur Barbiturates Screen Presumptive negative 03/05/16 19:43 Ur Phencyclidine Scrn Presumptive negative 03/05/16 19:43 Ur Amphetamines Screen Presumptive negative 03/05/16 19:43 U Benzodiazepines Scrn Presumptive negative 03/05/16 19:43 [place] 1.6 mmol/L (0.0-1.2) H* 03/08/16 17:42 Urine Cocaine Screen Presumptive negative 03/05/16 19:43 U Marijuana (THC) Screen Presumptive negative 03/05/16 19:43 Drugs of Abuse Note Disclamer 03/05/16 19:43 Plasma/Serum Alcohol < 0.01 gm% (0-0.07) 03/05/16 20:02 RPR Nonreactive (Nonreactive) 03/08/16 17:34
[2016-03-13] MEDS: ASPIRIN PO SCH (10:40)
[2016-03-13] MEDS: HCTZ PO SCH (10:40)
[2016-03-13] MEDS: HEPARIN SUB-Q SCH ×2 (10:41→22:56)
--- NOTE | 2016-03-13 11:27 | Progress Note ---
Assessment and Plan Assessment and plan: Patient is 65-year-old woman from [facility] with a history of diabetes mellitus type 2, hypertension, hypothyroidism, schizoaffective and bipolar disorder who presents with altered mental status, she was obtunded as opposed to her Baseline mentation which is screaming and yelling usually. She was found to have lithium toxicity, Li was dc and she was rx with IVF. She is now back to her baseline mental status. She was been treated for UTI with Cipro at the psych facility;she was hypoxic to 87% on admission due to metabolic encephalopathy, she was treated with supplemental oxygen, this has how resolved. 1. Altered mental status with acute encephalopathy, present on admission, most likely from [place] toxicity; neuro input appreciated, labs reviewed, Li level elevated at 1.6, B12 , NH3 and CK wnl, MR and MRA brain unremarkable now back to baseline mentation 2. Hypernatremia and Hypokalemia: resolved with IVF and K supplementation 3. Acute hypoxic respiratory failure, present on admission: has now resolved, weaned off oxygen 4. Bipolar and schizoaffective disorder: Psych has been consulted, hold antipsychotics due to dyskinesia and Li toxicity which has resolved. 5. UTI; completed empiric rx for UTI 6. HTN; continue HCtz History Interval history: Interval improvement, she is now calm and appropriate, responsive, pleasant and obeying commands Hospitalist Physical - Physical exam Narrative exam: General: Patient appears well in no distress HEENT: MMM, EOMI cardiac: S1-S2 heard lungs: clear to auscultation, abdomen: soft, nontender, nondistended bowel sounds positive extremities: no edema clubbing or cyanosis Skin: no rash or lesion Neuro: no focal deficit, obeying commands, oriented to person and place Psych: appropriate and pleasant - Constitutional Vitals: Temp Pulse Resp BP Pulse Ox 98.2 F 60 18 107/63 98 03/13/16 08:00 03/13/16 08:00 03/13/16 08:00 03/13/16 08:00 03/13/16 08:00 General appearance: Present: obese Results - Labs CBC & Chem 7: 03/11/16 10:18 03/11/16 08:25 Labs: Laboratory Last Values WBC 10.3 K/mm3 (4.5-11.0) 03/11/16 10:18 RBC 4.40 M/mm3 (3.65-5.03) 03/11/16 10:18 Hgb 13.2 gm/dl (10.1-14.3) 03/11/16 10:18 Hct 39.3 % (30.3-42.9) 03/11/16 10:18 MCV 89 fl (79-97) 03/11/16 10:18 MCH 30 pg (28-32) 03/11/16 10:18 MCHC 34 % (30-34) 03/11/16 10:18 RDW 13.9 % (13.2-15.2) 03/11/16 10:18 Plt Count 216 K/mm3 (140-440) 03/11/16 10:18 Lymph % (Auto) 13.5 % (13.4-35.0) 03/05/16 20:02 [place] % (Auto) 8.3 % (0.0-7.3) H 03/05/16 20:02 Eos % (Auto) 1.9 % (0.0-4.3) 03/05/16 20:02 Baso % (Auto) 0.8 % (0.0-1.8) 03/05/16 20:02 Lymph # 1.3 K/mm3 (1.2-5.4) 03/05/16 20:02 [place] # 0.8 K/mm3 (0.0-0.8) 03/05/16 20:02 Eos # 0.2 K/mm3 (0.0-0.4) 03/05/16 20:02 Baso # 0.1 K/mm3 (0.0-0.1) 03/05/16 20:02 Seg Neutrophils % 75.5 % (40.0-70.0) H 03/05/16 20:02 Seg Neutrophils # 7.4 K/mm3 (1.8-7.7) 03/05/16 20:02 Sodium 141 mmol/L (137-145) 03/11/16 08:25 Potassium 3.5 mmol/L (3.6-5.0) L 03/11/16 08:25 Chloride 101.1 mmol/L (98-107) 03/11/16 08:25 Carbon Dioxide 28 mmol/L (22-30) 03/11/16 08:25 Anion Gap 15 mmol/L 03/11/16 08:25 BUN 7 mg/dL (7-17) 03/11/16 08:25 Creatinine 0.6 mg/dL (0.7-1.2) L 03/11/16 08:25 Estimated GFR > 60 ml/min 03/11/16 08:25 BUN/Creatinine Ratio 11.66 % 03/11/16 08:25 Glucose 132 mg/dL (65-100) H 03/11/16 08:25 POC Glucose 123 (70-105) H 03/12/16 12:54 Lactic Acid 1.6 mmol/L (0.7-2.0) 03/05/16 22:35 Calcium 9.9 mg/dL (8.4-10.2) 03/11/16 08:25 Magnesium 1.9 mg/dL (1.7-2.3) 03/11/16 08:25 Total Bilirubin 0.9 mg/dL (0.1-1.2) 03/05/16 20:02 AST 16 units/L (5-40) 03/05/16 20:02 ALT 13 units/L (7-56) 03/05/16 20:02 Alkaline Phosphatase 134 units/L (35-129) H 03/05/16 20:02 Ammonia 45.0 umol/L (25-60) 03/08/16 17:34 Total Creatine Kinase 52 units/L (30-135) 03/08/16 17:34 Total Protein 6.9 g/dL (6.3-8.2) 03/05/16 20:02 Albumin 3.5 g/dL (3.9-5) L 03/05/16 20:02 Albumin/Globulin Ratio 1.0 % 03/05/16 20:02 Triglycerides 174 mg/dL (2-149) H 03/07/16 05:31 Cholesterol 149 mg/dL (50-199) 03/07/16 05:31 LDL Cholesterol Direct 82 mg/dL (50-130) 03/07/16 05:31 HDL Cholesterol 33 mg/dL (40-59) L 03/07/16 05:31 Cholesterol/HDL Ratio 4.51 % 03/07/16 05:31 Vitamin B12 1685 pg/mL (211-911) H 03/08/16 17:41 TSH 5.160 mlU/mL (0.270-4.200) H 03/05/16 20:02 Urine Color Yellow (Yellow) 03/05/16 19:43 Urine Turbidity Slightly-cloudy (Clear) 03/05/16 19:43 Urine pH 5.0 (5.0-7.0) 03/05/16 19:43 Ur Specific [place] 1.021 (1.003-1.030) 03/05/16 19:43 Urine Protein <15 mg/dl mg/dL (Negative) 03/05/16 19:43 Urine Glucose (UA) Neg mg/dL (Negative) 03/05/16 19:43 Urine Ketones 20 mg/dL (Negative) 03/05/16 19:43 Urine Blood Mod (Negative) 03/05/16 19:43 Urine Nitrite Neg (Negative) 03/05/16 19:43 Urine Bilirubin Neg (Negative) 03/05/16 19:43 Urine Urobilinogen < 2.0 mg/dL (<2.0) 03/05/16 19:43 Ur Leukocyte Esterase Neg (Negative) 03/05/16 19:43 Urine WBC (Auto) 7.0 /HPF (0.0-6.0) H 03/05/16 19:43 Urine RBC (Auto) 3.0 /HPF (0.0-6.0) 03/05/16 19:43 U Epithel Cells (Auto) 3.0 /HPF (0-13.0) 03/05/16 19:43 Urine Bacteria (Auto) 1+ /HPF (Negative) 03/05/16 19:43 Hyaline Casts 1 /LPF 03/05/16 19:43 Urine Mucus 2+ /HPF 03/05/16 19:43 Urine HCG, Qual Negative (Negative) 03/05/16 19:43 Salicylates < 0.3 mg/dL (2.8-20.0) L 03/05/16 19:34 Urine Opiates Screen Presumptive negative 03/05/16 19:43 Urine Methadone Screen Presumptive negative 03/05/16 19:43 Acetaminophen < 15.0 ug/mL (10.0-30.0) 03/05/16 20:02 Ur Barbiturates Screen Presumptive negative 03/05/16 19:43 Ur Phencyclidine Scrn Presumptive negative 03/05/16 19:43 Ur Amphetamines Screen Presumptive negative 03/05/16 19:43 U Benzodiazepines Scrn Presumptive negative 03/05/16 19:43 [place] 1.6 mmol/L (0.0-1.2) H* 03/08/16 17:42 Urine Cocaine Screen Presumptive negative 03/05/16 19:43 U Marijuana (THC) Screen Presumptive negative 03/05/16 19:43 Drugs of Abuse Note Disclamer 03/05/16 19:43 Plasma/Serum Alcohol < 0.01 gm% (0-0.07) 03/05/16 20:02 RPR Nonreactive (Nonreactive) 03/08/16 17:34
[2016-03-13] MEDS: D5W 1,000 ML IV SCH (13:50)
[2016-03-14] MEDS: D5W 1,000 ML IV SCH (06:57)
[2016-03-14] MEDS: HCTZ PO SCH (10:04)
[2016-03-14] MEDS: ASPIRIN PO SCH (10:04)
[2016-03-14] MEDS: HEPARIN SUB-Q SCH ×2 (12:18→22:37)
--- NOTE | 2016-03-14 12:51 | Progress Note ---
Assessment and Plan Assessment and plan: Patient is 65-year-old woman from [facility] with a history of diabetes mellitus type 2, hypertension, hypothyroidism, schizoaffective and bipolar disorder who presents with altered mental status, she was obtunded as opposed to her Baseline mentation which is screaming and yelling usually. She was found to have lithium toxicity, Li was dc and she was rx with IVF. She is now back to her baseline mental status. She was been treated for UTI with Cipro at the psych facility;she was hypoxic to 87% on admission due to metabolic encephalopathy, she was treated with supplemental oxygen, this has how resolved. 1. Altered mental status with acute encephalopathy, present on admission, most likely from [place] toxicity; neuro input appreciated, labs reviewed, Li level elevated at 1.6, B12 , NH3 and CK wnl, MR and MRA brain unremarkable now back to baseline mentation 2. Hypernatremia and Hypokalemia: resolved with IVF and K supplementation 3. Acute hypoxic respiratory failure, present on admission: has now resolved, weaned off oxygen 4. Bipolar and schizoaffective disorder: Psych has been consulted, hold antipsychotics due to dyskinesia and Li toxicity which has resolved. 5. UTI; completed empiric rx for UTI 6. HTN; continue HCtz History Interval history: Interval improvement, she is now calm and appropriate, responsive, pleasant and obeying commands Hospitalist Physical - Physical exam Narrative exam: General: Patient appears well in no distress HEENT: MMM, EOMI cardiac: S1-S2 heard lungs: clear to auscultation, abdomen: soft, nontender, nondistended bowel sounds positive extremities: no edema clubbing or cyanosis Skin: no rash or lesion Neuro: no focal deficit, obeying commands, oriented to person and place Psych: appropriate and pleasant - Constitutional Vitals: Temp Pulse Resp BP Pulse Ox 97.7 F 68 18 110/86 96 03/14/16 07:00 03/14/16 07:00 03/14/16 07:00 03/14/16 07:00 03/14/16 07:00 General appearance: Present: obese Results - Labs CBC & Chem 7: 03/11/16 10:18 03/11/16 08:25 Labs: Laboratory Last Values WBC 10.3 K/mm3 (4.5-11.0) 03/11/16 10:18 RBC 4.40 M/mm3 (3.65-5.03) 03/11/16 10:18 Hgb 13.2 gm/dl (10.1-14.3) 03/11/16 10:18 Hct 39.3 % (30.3-42.9) 03/11/16 10:18 MCV 89 fl (79-97) 03/11/16 10:18 MCH 30 pg (28-32) 03/11/16 10:18 MCHC 34 % (30-34) 03/11/16 10:18 RDW 13.9 % (13.2-15.2) 03/11/16 10:18 Plt Count 216 K/mm3 (140-440) 03/11/16 10:18 Lymph % (Auto) 13.5 % (13.4-35.0) 03/05/16 20:02 [place] % (Auto) 8.3 % (0.0-7.3) H 03/05/16 20:02 Eos % (Auto) 1.9 % (0.0-4.3) 03/05/16 20:02 Baso % (Auto) 0.8 % (0.0-1.8) 03/05/16 20:02 Lymph # 1.3 K/mm3 (1.2-5.4) 03/05/16 20:02 [place] # 0.8 K/mm3 (0.0-0.8) 03/05/16 20:02 Eos # 0.2 K/mm3 (0.0-0.4) 03/05/16 20:02 Baso # 0.1 K/mm3 (0.0-0.1) 03/05/16 20:02 Seg Neutrophils % 75.5 % (40.0-70.0) H 03/05/16 20:02 Seg Neutrophils # 7.4 K/mm3 (1.8-7.7) 03/05/16 20:02 Sodium 141 mmol/L (137-145) 03/11/16 08:25 Potassium 3.5 mmol/L (3.6-5.0) L 03/11/16 08:25 Chloride 101.1 mmol/L (98-107) 03/11/16 08:25 Carbon Dioxide 28 mmol/L (22-30) 03/11/16 08:25 Anion Gap 15 mmol/L 03/11/16 08:25 BUN 7 mg/dL (7-17) 03/11/16 08:25 Creatinine 0.6 mg/dL (0.7-1.2) L 03/11/16 08:25 Estimated GFR > 60 ml/min 03/11/16 08:25 BUN/Creatinine Ratio 11.66 % 03/11/16 08:25 Glucose 132 mg/dL (65-100) H 03/11/16 08:25 POC Glucose 123 (70-105) H 03/12/16 12:54 Lactic Acid 1.6 mmol/L (0.7-2.0) 03/05/16 22:35 Calcium 9.9 mg/dL (8.4-10.2) 03/11/16 08:25 Magnesium 1.9 mg/dL (1.7-2.3) 03/11/16 08:25 Total Bilirubin 0.9 mg/dL (0.1-1.2) 03/05/16 20:02 AST 16 units/L (5-40) 03/05/16 20:02 ALT 13 units/L (7-56) 03/05/16 20:02 Alkaline Phosphatase 134 units/L (35-129) H 03/05/16 20:02 Ammonia 45.0 umol/L (25-60) 03/08/16 17:34 Total Creatine Kinase 52 units/L (30-135) 03/08/16 17:34 Total Protein 6.9 g/dL (6.3-8.2) 03/05/16 20:02 Albumin 3.5 g/dL (3.9-5) L 03/05/16 20:02 Albumin/Globulin Ratio 1.0 % 03/05/16 20:02 Triglycerides 174 mg/dL (2-149) H 03/07/16 05:31 Cholesterol 149 mg/dL (50-199) 03/07/16 05:31 LDL Cholesterol Direct 82 mg/dL (50-130) 03/07/16 05:31 HDL Cholesterol 33 mg/dL (40-59) L 03/07/16 05:31 Cholesterol/HDL Ratio 4.51 % 03/07/16 05:31 Vitamin B12 1685 pg/mL (211-911) H 03/08/16 17:41 TSH 5.160 mlU/mL (0.270-4.200) H 03/05/16 20:02 Urine Color Yellow (Yellow) 03/05/16 19:43 Urine Turbidity Slightly-cloudy (Clear) 03/05/16 19:43 Urine pH 5.0 (5.0-7.0) 03/05/16 19:43 Ur Specific [place] 1.021 (1.003-1.030) 03/05/16 19:43 Urine Protein <15 mg/dl mg/dL (Negative) 03/05/16 19:43 Urine Glucose (UA) Neg mg/dL (Negative) 03/05/16 19:43 Urine Ketones 20 mg/dL (Negative) 03/05/16 19:43 Urine Blood Mod (Negative) 03/05/16 19:43 Urine Nitrite Neg (Negative) 03/05/16 19:43 Urine Bilirubin Neg (Negative) 03/05/16 19:43 Urine Urobilinogen < 2.0 mg/dL (<2.0) 03/05/16 19:43 Ur Leukocyte Esterase Neg (Negative) 03/05/16 19:43 Urine WBC (Auto) 7.0 /HPF (0.0-6.0) H 03/05/16 19:43 Urine RBC (Auto) 3.0 /HPF (0.0-6.0) 03/05/16 19:43 U Epithel Cells (Auto) 3.0 /HPF (0-13.0) 03/05/16 19:43 Urine Bacteria (Auto) 1+ /HPF (Negative) 03/05/16 19:43 Hyaline Casts 1 /LPF 03/05/16 19:43 Urine Mucus 2+ /HPF 03/05/16 19:43 Urine HCG, Qual Negative (Negative) 03/05/16 19:43 Salicylates < 0.3 mg/dL (2.8-20.0) L 03/05/16 19:34 Urine Opiates Screen Presumptive negative 03/05/16 19:43 Urine Methadone Screen Presumptive negative 03/05/16 19:43 Acetaminophen < 15.0 ug/mL (10.0-30.0) 03/05/16 20:02 Ur Barbiturates Screen Presumptive negative 03/05/16 19:43 Ur Phencyclidine Scrn Presumptive negative 03/05/16 19:43 Ur Amphetamines Screen Presumptive negative 03/05/16 19:43 U Benzodiazepines Scrn Presumptive negative 03/05/16 19:43 [place] 1.6 mmol/L (0.0-1.2) H* 03/08/16 17:42 Urine Cocaine Screen Presumptive negative 03/05/16 19:43 U Marijuana (THC) Screen Presumptive negative 03/05/16 19:43 Drugs of Abuse Note Disclamer 03/05/16 19:43 Plasma/Serum Alcohol < 0.01 gm% (0-0.07) 03/05/16 20:02 RPR Nonreactive (Nonreactive) 03/08/16 17:34
[2016-03-15 06:10] LABS: Anion Gap 16 mmol/L; Blood Urea Nitrogen 6 mg/dL (7-17); Calcium 9.8 mg/dL (8.4-10.2); Carbon Dioxide 29 mmol/L (22-30); Chloride 95.4 mmol/L (98-107); Glucose 137 mg/dL (65-100); Potassium 4.2 mmol/L (3.6-5.0); Sodium 136 mmol/L (137-145)
--- NOTE | 2016-03-15 08:47 | Progress Note ---
Assessment and Plan Assessment and plan: Patient is 65-year-old woman from [facility] with a history of diabetes mellitus type 2, hypertension, hypothyroidism, schizoaffective and bipolar disorder who presents with altered mental status, she was obtunded as opposed to her Baseline mentation which is screaming and yelling usually. She was found to have lithium toxicity, Li was dc and she was rx with IVF. She is now back to her baseline mental status. She was been treated for UTI with Cipro at the psych facility;she was hypoxic to 87% on admission due to metabolic encephalopathy, she was treated with supplemental oxygen, this has how resolved. 1. Altered mental status with acute encephalopathy, present on admission, most likely from [place] toxicity; neuro input appreciated, labs reviewed, Li level elevated at 1.6, B12 , NH3 and CK wnl, MR and MRA brain unremarkable now back to baseline mentation 2. Hypernatremia and Hypokalemia: resolved with IVF and K supplementation 3. Acute hypoxic respiratory failure, present on admission: has now resolved, weaned off oxygen 4. Bipolar and schizoaffective disorder: Psych has been consulted, hold antipsychotics due to dyskinesia and Li toxicity which has resolved. 5. UTI; completed empiric rx for UTI 6. HTN; continue HCtz History Interval history: Interval improvement, she is now calm and appropriate, responsive, pleasant and obeying commands Hospitalist Physical - Physical exam Narrative exam: General: Patient appears well in no distress HEENT: MMM, EOMI cardiac: S1-S2 heard lungs: clear to auscultation, abdomen: soft, nontender, nondistended bowel sounds positive extremities: no edema clubbing or cyanosis Skin: no rash or lesion Neuro: no focal deficit, obeying commands, oriented to person and place Psych: appropriate and pleasant - Constitutional Vitals: Temp Pulse Resp BP Pulse Ox 97.8 F 60 20 103/67 96 03/15/16 08:00 03/15/16 08:00 03/15/16 08:00 03/15/16 08:00 03/15/16 08:00 General appearance: Present: obese Results - Labs CBC & Chem 7: 03/11/16 10:18 03/15/16 05:25 Labs: Laboratory Last Values WBC 10.3 K/mm3 (4.5-11.0) 03/11/16 10:18 RBC 4.40 M/mm3 (3.65-5.03) 03/11/16 10:18 Hgb 13.2 gm/dl (10.1-14.3) 03/11/16 10:18 Hct 39.3 % (30.3-42.9) 03/11/16 10:18 MCV 89 fl (79-97) 03/11/16 10:18 MCH 30 pg (28-32) 03/11/16 10:18 MCHC 34 % (30-34) 03/11/16 10:18 RDW 13.9 % (13.2-15.2) 03/11/16 10:18 Plt Count 216 K/mm3 (140-440) 03/11/16 10:18 Lymph % (Auto) 13.5 % (13.4-35.0) 03/05/16 20:02 [place] % (Auto) 8.3 % (0.0-7.3) H 03/05/16 20:02 Eos % (Auto) 1.9 % (0.0-4.3) 03/05/16 20:02 Baso % (Auto) 0.8 % (0.0-1.8) 03/05/16 20:02 Lymph # 1.3 K/mm3 (1.2-5.4) 03/05/16 20:02 [place] # 0.8 K/mm3 (0.0-0.8) 03/05/16 20:02 Eos # 0.2 K/mm3 (0.0-0.4) 03/05/16 20:02 Baso # 0.1 K/mm3 (0.0-0.1) 03/05/16 20:02 Seg Neutrophils % 75.5 % (40.0-70.0) H 03/05/16 20:02 Seg Neutrophils # 7.4 K/mm3 (1.8-7.7) 03/05/16 20:02 Sodium 136 mmol/L (137-145) L 03/15/16 05:25 Potassium 4.2 mmol/L (3.6-5.0) 03/15/16 05:25 Chloride 95.4 mmol/L (98-107) L 03/15/16 05:25 Carbon Dioxide 29 mmol/L (22-30) 03/15/16 05:25 Anion Gap 16 mmol/L 03/15/16 05:25 BUN 6 mg/dL (7-17) L 03/15/16 05:25 Creatinine 0.6 mg/dL (0.7-1.2) L 03/15/16 05:25 Estimated GFR > 60 ml/min 03/15/16 05:25 BUN/Creatinine Ratio 10.00 % 03/15/16 05:25 Glucose 137 mg/dL (65-100) H 03/15/16 05:25 POC Glucose 123 (70-105) H 03/12/16 12:54 Lactic Acid 1.6 mmol/L (0.7-2.0) 03/05/16 22:35 Calcium 9.8 mg/dL (8.4-10.2) 03/15/16 05:25 Magnesium 1.9 mg/dL (1.7-2.3) 03/11/16 08:25 Total Bilirubin 0.9 mg/dL (0.1-1.2) 03/05/16 20:02 AST 16 units/L (5-40) 03/05/16 20:02 ALT 13 units/L (7-56) 03/05/16 20:02 Alkaline Phosphatase 134 units/L (35-129) H 03/05/16 20:02 Ammonia 45.0 umol/L (25-60) 03/08/16 17:34 Total Creatine Kinase 52 units/L (30-135) 03/08/16 17:34 Total Protein 6.9 g/dL (6.3-8.2) 03/05/16 20:02 Albumin 3.5 g/dL (3.9-5) L 03/05/16 20:02 Albumin/Globulin Ratio 1.0 % 03/05/16 20:02 Triglycerides 174 mg/dL (2-149) H 03/07/16 05:31 Cholesterol 149 mg/dL (50-199) 03/07/16 05:31 LDL Cholesterol Direct 82 mg/dL (50-130) 03/07/16 05:31 HDL Cholesterol 33 mg/dL (40-59) L 03/07/16 05:31 Cholesterol/HDL Ratio 4.51 % 03/07/16 05:31 Vitamin B12 1685 pg/mL (211-911) H 03/08/16 17:41 TSH 5.160 mlU/mL (0.270-4.200) H 03/05/16 20:02 Urine Color Yellow (Yellow) 03/05/16 19:43 Urine Turbidity Slightly-cloudy (Clear) 03/05/16 19:43 Urine pH 5.0 (5.0-7.0) 03/05/16 19:43 Ur Specific [place] 1.021 (1.003-1.030) 03/05/16 19:43 Urine Protein <15 mg/dl mg/dL (Negative) 03/05/16 19:43 Urine Glucose (UA) Neg mg/dL (Negative) 03/05/16 19:43 Urine Ketones 20 mg/dL (Negative) 03/05/16 19:43 Urine Blood Mod (Negative) 03/05/16 19:43 Urine Nitrite Neg (Negative) 03/05/16 19:43 Urine Bilirubin Neg (Negative) 03/05/16 19:43 Urine Urobilinogen < 2.0 mg/dL (<2.0) 03/05/16 19:43 Ur Leukocyte Esterase Neg (Negative) 03/05/16 19:43 Urine WBC (Auto) 7.0 /HPF (0.0-6.0) H 03/05/16 19:43 Urine RBC (Auto) 3.0 /HPF (0.0-6.0) 03/05/16 19:43 U Epithel Cells (Auto) 3.0 /HPF (0-13.0) 03/05/16 19:43 Urine Bacteria (Auto) 1+ /HPF (Negative) 03/05/16 19:43 Hyaline Casts 1 /LPF 03/05/16 19:43 Urine Mucus 2+ /HPF 03/05/16 19:43 Urine HCG, Qual Negative (Negative) 03/05/16 19:43 Salicylates < 0.3 mg/dL (2.8-20.0) L 03/05/16 19:34 Urine Opiates Screen Presumptive negative 03/05/16 19:43 Urine Methadone Screen Presumptive negative 03/05/16 19:43 Acetaminophen < 15.0 ug/mL (10.0-30.0) 03/05/16 20:02 Ur Barbiturates Screen Presumptive negative 03/05/16 19:43 Ur Phencyclidine Scrn Presumptive negative 03/05/16 19:43 Ur Amphetamines Screen Presumptive negative 03/05/16 19:43 U Benzodiazepines Scrn Presumptive negative 03/05/16 19:43 [place] 1.6 mmol/L (0.0-1.2) H* 03/08/16 17:42 Urine Cocaine Screen Presumptive negative 03/05/16 19:43 U Marijuana (THC) Screen Presumptive negative 03/05/16 19:43 Drugs of Abuse Note Disclamer 03/05/16 19:43 Plasma/Serum Alcohol < 0.01 gm% (0-0.07) 03/05/16 20:02 RPR Nonreactive (Nonreactive) 03/08/16 17:34
[2016-03-15] MEDS: HCTZ PO SCH (09:31)
[2016-03-15] MEDS: ASPIRIN PO SCH (09:32)
[2016-03-15] MEDS: HEPARIN SUB-Q SCH ×2 (09:33→21:41)
--- NOTE | 2016-03-15 13:54 | Consultation ---
History of Present Illness - Reason for Consult Consult date: 03/15/16 AMS - History of Present Illness certainly feel that latuda can cause this dgree of encephalopathy will review prior studies neuro exam done will follow thanks Past History Past Medical History: diabetes, GERD, hypertension, hyperlipidemia, other ( bipolar, schizoaffective disorder) Past Surgical History: No surgical history, Other (reviewed) Social history: single. denies: smoking, alcohol abuse, prescription drug abuse Medications and Allergies Allergies Allergy/AdvReac Type Severity Reaction Status Date / Time No Known Allergies Allergy Verified 03/05/16 21:34 Home Medications Medication Instructions Recorded Confirmed Last Taken Type Ciprofloxacin HCl [Ciprofloxacin 500 mg PO BID 03/05/16 03/05/16 03/05/16 History TAB] Levothyroxine [Synthroid] 50 mcg PO QAM 03/05/16 03/05/16 Unknown History [place] Carbonate 600 mg PO BID 03/05/16 03/05/16 Unknown History Metoprolol [Lopressor TAB] 50 mg PO QAM 03/05/16 03/05/16 Unknown History OLANzapine [ZyPREXA] 10 mg PO QHS 03/05/16 03/05/16 Unknown History Olanzapine [ZyPREXA] 10 mg PO BID 03/05/16 03/05/16 Unknown History Simvastatin [Zocor TAB] 10 mg PO QHS 03/05/16 03/05/16 Unknown History Ziprasidone HCl [Geodon] 80 mg PO BID 03/05/16 03/05/16 Unknown History Ziprasidone Mesylate [Geodon] 20 mg IM PRN PRN 03/05/16 03/05/16 Unknown History amLODIPine [Norvasc] 5 mg PO DAILY 03/05/16 03/05/16 Unknown History metFORMIN [Glucophage] 500 mg PO BID 03/05/16 03/05/16 Unknown History Active Meds: Active Medications Acetaminophen (Tylenol) 650 mg PO Q4H PRN PRN Reason: Pain MILD(1-3)/Fever >100.5/MORGAN Last Admin: 03/13/16 10:40 Dose: 650 mg Aspirin (Aspirin) 325 mg PO QDAY [facility] Last Admin: 03/15/16 09:32 Dose: 325 mg Atorvastatin Calcium (Lipitor) 20 mg PO QHS [facility] Last Admin: 03/14/16 22:34 Dose: 20 mg Heparin Sodium (Porcine) (Heparin) 5,000 unit SUB-Q Q12HR [facility] Last Admin: 03/15/16 09:33 Dose: 5,000 unit Hydralazine HCl (Apresoline) 10 mg IV Q6HR PRN PRN Reason: Hypertension Hydrochlorothiazide (Hctz) 25 mg PO QDAY [facility] Last Admin: 03/15/16 09:31 Dose: Not Given Dextrose (D5w) 1,000 mls @ 75 mls/hr IV DIRECT [facility] Last Admin: 03/14/16 06:57 Dose: 75 mls/hr Lorazepam (Ativan) 1 mg IV Q4H PRN PRN Reason: Agitation Last Admin: 03/09/16 17:19 Dose: 1 mg Ondansetron HCl (Zofran) 4 mg IV Q4H PRN PRN Reason: Nausea And Vomiting Last Admin: 03/09/16 04:12 Dose: 4 mg Exam - Constitutional Vitals: Temp Pulse Resp BP Pulse Ox 97.8 F 60 20 103/67 96 03/15/16 08:00 03/15/16 08:00 03/15/16 08:00 03/15/16 08:00 03/15/16 08:00 Results - Labs CBC & Chem 7: 03/11/16 10:18 03/15/16 05:25 Labs: Abnormal lab results 03/15/16 Range/Units 05:25 Sodium 136 L (137-145) mmol/L Chloride 95.4 L (98-107) mmol/L BUN 6 L (7-17) mg/dL Creatinine 0.6 L (0.7-1.2) mg/dL Glucose 137 H (65-100) mg/dL
[2016-03-16] MEDS: D5W 1,000 ML IV SCH (06:59)
[2016-03-16] MEDS: ASPIRIN PO SCH (09:29)
[2016-03-16] MEDS: HCTZ PO SCH (09:29)
[2016-03-16] MEDS: HEPARIN SUB-Q SCH (09:30)
--- NOTE | 2016-03-16 11:56 | Discharge Summary ---
Providers - Providers Date of Admission: 03/05/16 22:08 Attending physician: STEFANIA BARRETT MD 03/06/16 08:27 psychiatry consult [Consult to Mental Health] [CONS] Routine Reason For Exam: bipolar Place consult to:: psych Notified:: [id number] Phone number called:: [phone] Was contact made?: Yes If yes, spoke with:: mike Time called:: 11:27 03/06/16 14:51 Physical Therapy Evaluation and Treat [CONS] Routine Comment: Reason For Exam: stroke 03/07/16 11:44 Consult to Physician [CONS] Routine Consulting Provider: RYAN PADRON Reason For Exam: ?Seizures Place consult to:: DR. PADRON/MALACHI Notified:: ANSWERING MACHINE Phone number called:: [phone] Was contact made?: Yes If yes, spoke with:: LEFT MESSAGE ON AM Time called:: 11:55 Comment:: LEFT MESSAGE ON ANSWERING MACHINE 03/08/16 18:05 Speech Therapy Evaluation and Treat [CONS] Routine Reason For Exam: swallowing eval. 03/15/16 11:38 Consult to Physician [CONS] Routine Consulting Provider: FREDERICK AMBROSIO Reason For Exam: Neuro eval requested by psychiatry for placement Place consult to:: Office Notified:: yes Phone number called:: [phone] Was contact made?: Yes If yes, spoke with:: Zara Time called:: 12:00 Primary care physician: BOWLING FLOOR DESK CLERK Hospitalization Condition: Stable Hospital course: Patient is 65-year-old woman from [facility] with a history of diabetes mellitus type 2, hypertension, hypothyroidism, schizoaffective and bipolar disorder who presents with altered mental status, she was obtunded as opposed to her Baseline mentation which is screaming and yelling usually. She was found to have lithium toxicity, Li was dc and she was rx with IVF. She is now back to her baseline mental status. She was been treated for UTI with Cipro at the psych facility;she was hypoxic to 87% on admission due to metabolic encephalopathy, she was treated with supplemental oxygen, this has how resolved. 1. Altered mental status with acute encephalopathy, present on admission, most likely from [place] toxicity; neuro input appreciated, labs reviewed, Li level elevated at 1.6, B12 , NH3 and CK wnl, MR and MRA brain unremarkable now back to baseline mentation 2. Hypernatremia and Hypokalemia: resolved with IVF and K supplementation 3. Acute hypoxic respiratory failure, present on admission: has now resolved, weaned off oxygen 4. Bipolar and schizoaffective disorder: Psych has been consulted, hold antipsychotics due to dyskinesia and Li toxicity which has resolved. 5. UTI; completed empiric rx for UTI 6. HTN; continue HCtz Disposition: DC/TX PSY HOSP/PSY UNIT Time spent for discharge: 35 minutes Core Measure Documentation - Palliative Care Palliative Care/ Comfort Measures: Not Applicable - Core Measures Any of the following diagnoses?: none Exam - Physical Exam Narrative exam: General: Patient appears well in no distress HEENT: MMM, EOMI cardiac: S1-S2 heard lungs: clear to auscultation, abdomen: soft, nontender, nondistended bowel sounds positive extremities: no edema clubbing or cyanosis Skin: no rash or lesion Neuro: no focal deficit, obeying commands, oriented to person and place Psych: appropriate and pleasant - Constitutional Vitals: Temp Pulse Resp BP Pulse Ox 97.6 F 55 L 16 107/69 98 03/16/16 08:00 03/16/16 08:00 03/16/16 08:00 03/16/16 08:00 03/16/16 08:00 Plan Follow up with: PRIMARY MD REGGIE [Primary Care Provider] - 3-5 Days
[2016-03-16] MEDS ORDERED: PNEUMOVAX 23 IM ONE (14:00)
[2016-03-16 15:43] VITALS: BP 130/75
== END 2016-03-16 16:12 | DRG 189 ==
LOC: ED 17:40 → 3A 22:08
PROVIDERS: ADMIT Internal Medicine; ATTEND Internal Medicine
DX: J96.01 Acute respiratory failure with hypoxia (principal); G93.40 Encephalopathy, unspecified; N39.0 Urinary tract infection, site not specified; E87.1 Hypo-osmolality and hyponatremia; E11.9 Type 2 diabetes mellitus without complications; I10 Essential (primary) hypertension; F31.9 Bipolar disorder, unspecified; K21.9 Gastro-esophageal reflux disease without esophagitis; E78.5 Hyperlipidemia, unspecified; F25.9 Schizoaffective disorder, unspecified; E03.9 Hypothyroidism, unspecified; E87.6 Hypokalemia; T43.595A Adverse effect of other antipsychotics and neuroleptics, initial encounter; Y92.89 Other specified places as the place of occurrence of the external cause
CPT/HCPCS: 36415; 70450; 70544; 70551; 80048; 80053; 80061; 80178; 80307; 80320; 81001; 81025; 82140; 82550; 82607; 82962; 83735; 84443; 85025; 85027; 86592; 90732; 93005; 93010; 93306; 93880; 94760; 95819; 96374; 96375; A9270-GY; G0480; J0696; J1200; J1644; J2060; J2405; J7070

== ENCOUNTER 2017-03-04 08:57 | Emergency (ER) | payer OTHER ==
[2017-03-04 09:37] VITALS: BP 145/87
--- NOTE | 2017-03-04 11:29 | Emergency Department Report ---
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 Patient states that her psychiatric is no longer takes her arm better insurance and she was not able to get her medications to refilled due to this incident. Patient states the next morning she is to qualify for Medicare and will be applying for Medicaid in the produce see her psychiatrist in April. She denies any other medical conditions or problems at this time. She denies suicidal ideation or homicidal ideation. She denies auditory or visual hallucinations. Patient states her last dose was yesterday. Cardiology Manager verifies all information stated by the patient. - ROS Review of Systems: As noted in HPI Denies all other systems. - Exam Vital Signs: Vital Signs 03/04/17 09:32 Temperature 98.8 F Pulse Rate 101 H Respiratory 18 Rate Blood Pressure 145/87 O2 Sat by Pulse 97 Oximetry Physical Exam: GENERAL: Alert and oriented x3, no apparent distress, Normal Gait, atraumatic. HEAD: Head is normocephalic and a-traumatic. EYES: Pupils are equal, round, and reactive to light and accommodation. MOUTH:Mouth is well hydrated and without lesions. LUNGS: Symetrical with respiration, No wheezing, no rales or crackles, CTAB. HEART: S1, S2 present, regular rate and rhythm without murmur, no rubs, no gallops. Non tender to palpation NEUROLOGIC: The patient is cooperative with no focal neurologic deficits. PSYCHIATRIC: Mood is congruent with affect, denies suicidal or homicidal ideations. Denies A/V hallucinations SKIN: Warm and dry, No lesions, No ulceration or induration present. MSE screening note: Focused history and physical exam performed. Due to findings the following was ordered: ED Medical Decision Making - Medical Decision Making 66-year-old female presents medication refill. Patient was alert and oriented to his ED stay. Patient did not exhibit any signs of psychosis. Patient states she will follow-up with her psychiatrist next month after she gets her Medicare approves. Vital signs are stable patient is in acute distress. ED Disposition for MSE Clinical Impression: Encounter for medication refill Disposition: - TO HOME OR SELFCARE Is pt being admited?: No Does the pt Need Aspirin: No Condition: Stable Additional Instructions: Make sure to follow up with [facility] physician as discussed. Take all your medications as you've been prescribed. If you have any worsening symptoms or develop new symptoms please return to ED immediately. Prescriptions: cloZAPine 50 mg PO QHS #40 tablet ARIPiprazole [Aripiprazole] 15 mg PO DAILY #40 tablet cloZAPine [Clozapine] 25 mg PO BID #60 tablet Divalproex Sodium [Depakote] 500 mg PO BID #60 tablet. risperiDONE [Risperdal] 2 mg PO BID #60 tablet Referrals: KEI LITTLE MD [Referring] - 3-5 Days EFRAÍN ARANA MD [Referring] - 3-5 Days [facility] [Outside] - 3-5 Days Forms: Accompanied Note Time of Disposition: 11:40
== END 2017-03-04 12:06 | disposition home or self-care (01) ==
LOC: ED 08:57
DX: Z76.0 Encounter for issue of repeat prescription (principal)
CPT/HCPCS: 99282

== ENCOUNTER 2017-04-01 02:00 | Emergency (ER) | payer OTHER ==
[2017-04-01 02:49] LABS: Basophils % (Auto) 0.6 % (0.0-1.8); Eosinophils # (Auto) 0.1 K/mm3 (0.0-0.4); Eosinophils % (Auto) 1.7 % (0.0-4.3); Hematocrit 36.8 % (30.3-42.9); Hemoglobin 12.4 gm/dl (10.1-14.3); Lymphocytes # (Auto) 1.9 K/mm3 (1.2-5.4); Lymphocytes % (Auto) 33.1 % (13.4-35.0); Mean Corpuscular HGB Conc 34 % (30-34); Mean Corpuscular Hemoglobin 31 pg (28-32); Mean Corpuscular Volume 92 fl (79-97); Monocytes # (Auto) 0.4 K/mm3 (0.0-0.8); Monocytes % (Auto) 7.3 % (0.0-7.3); Platelet Count 237 K/mm3 (140-440); Red Blood Count 3.99 M/mm3 (3.65-5.03); Red Cell Distribution Width 15.8 % (13.2-15.2)
[2017-04-01 03:03] LABS: BUN/Creatinine Ratio 21; Blood Urea Nitrogen 15 mg/dL (7-17); Calcium 9.5 mg/dL (8.4-10.2); Hemolysis Index 24
--- NOTE | 2017-04-01 12:21 | Emergency Department Report ---
Chief Complaint: Psych Stated Complaint: CANT SLEEP - HPI History of Present Illness: 66 yo female with hx of bipolar affective disorder and schizophrenia has multiple concerns. I am concerned for delusional thought behavior and circular speech. Will need psychiatric evaluation. - Exam Vital Signs: Vital Signs 04/01/17 02:16 Temperature 98 F Pulse Rate 104 H Respiratory 20 Rate Blood Pressure 152/96 O2 Sat by Pulse 98 Oximetry MSE screening note: Focused history and physical exam performed. Due to findings the following was ordered: ED Medical Decision Making - Lab Data Result diagrams: 04/01/17 02:36 04/01/17 02:36 ED Disposition for MSE Condition: Stable Referrals: TUCKER JAMES MD [Primary Care Provider] - 3-5 Days
--- NOTE | 2017-04-01 12:50 | Emergency Department Report ---
ED Psych HPI - General Chief Complaint: Psych Stated Complaint: CANT SLEEP Source: patient, family Mode of arrival: Ambulatory - History of Present Illness Initial Comments: 66-year-old -[place] female with past medical history bipolar thyroid disease and hyperlipidemia comes in today for basically have nowhere to go. Patient reports that she was seen at [facility] for about 2 weeks and yesterday was discharged approximately 2 PM she was given prescriptions from Dr. Medina for medication with them tomorrow pharmacy and they informed her of her co-pay that it was then be approximately $500. Patient reports that she does not have the money. She did complain of having diarrhea 4 days ago and last loose stool was last night. She also complains of her runny nose for about 4 days. I did speak with her nursing care partner and she reports that when she put Ms. Hannon home she started to get semi-violent and throwing things that's when she brought her to our emergency room approximately 1:00 this morning. - Related Data Previous Rx's Medication Instructions Recorded Last Taken Type Aspirin EC [Aspirin Enteric Coated 81 mg PO QDAY #30 tablet. 03/16/16 Unknown Rx TAB] AtorvaSTATin [Lipitor] 20 mg PO QHS #30 tablet 03/16/16 Unknown Rx Hydrochlorothiazide [HCTZ] 25 mg PO QDAY #30 tablet 03/16/16 Unknown Rx Levothyroxine [Synthroid] 50 mcg PO QAM #30 tablet 03/16/16 Unknown Rx ARIPiprazole [Aripiprazole] 15 mg PO DAILY #40 tablet 03/04/17 Unknown Rx Divalproex Sodium [Depakote] 500 mg PO BID #60 tablet. 03/04/17 Unknown Rx cloZAPine 50 mg PO QHS #40 tablet 03/04/17 Unknown Rx cloZAPine [Clozapine] 25 mg PO BID #60 tablet 03/04/17 Unknown Rx risperiDONE [Risperdal] 2 mg PO BID #60 tablet 03/04/17 Unknown Rx Allergies Allergy/AdvReac Type Severity Reaction Status Date / Time No Known Allergies Allergy Verified 03/05/16 21:34 ED Review of Systems ROS: Stated complaint: CANT SLEEP Other details as noted in HPI ED Past Medical Hx - Past Medical History Previous Medical History?: Yes Hx Hypertension: Yes Hx Diabetes: Yes Hx GERD: Yes Hx Psychiatric Treatment: Yes (bipolar) Additional medical history: Dyslipidemia Jv, schizoaffective disorder - Surgical History Past Surgical History?: Yes Additional Surgical History: tonsillectomy - Social History Smoking Status: Former Smoker Substance Use Type: None - Medications Home Medications: Home Medications Medication Instructions Recorded Confirmed Last Taken Type Aspirin EC [Aspirin Enteric Coated 81 mg PO QDAY #30 tablet. 03/16/16 Unknown Rx TAB] AtorvaSTATin [Lipitor] 20 mg PO QHS #30 tablet 03/16/16 Unknown Rx Hydrochlorothiazide [HCTZ] 25 mg PO QDAY #30 tablet 03/16/16 Unknown Rx Levothyroxine [Synthroid] 50 mcg PO QAM #30 tablet 03/16/16 Unknown Rx ARIPiprazole [Aripiprazole] 15 mg PO DAILY #40 tablet 03/04/17 Unknown Rx Divalproex Sodium [Depakote] 500 mg PO BID #60 tablet. 03/04/17 Unknown Rx cloZAPine 50 mg PO QHS #40 tablet 03/04/17 Unknown Rx cloZAPine [Clozapine] 25 mg PO BID #60 tablet 03/04/17 Unknown Rx risperiDONE [Risperdal] 2 mg PO BID #60 tablet 03/04/17 Unknown Rx ED Physical Exam - General Limitations: No Limitations ED Course Vital Signs 04/01/17 02:16 Temperature 98 F Pulse Rate 104 H Respiratory 20 Rate Blood Pressure 152/96 O2 Sat by Pulse 98 Oximetry ED Medical Decision Making - Lab Data Result diagrams: 04/01/17 02:36 04/01/17 02:36 Critical care attestation.: If time is entered above; I have spent that time in minutes in the direct care of this critically ill patient, excluding procedure time. ED Disposition Condition: Stable Referrals: TUCKER JAMES MD [Primary Care Provider] - 3-5 Days
[2017-04-01] MEDS ORDERED: TYLENOL PO ONE (18:04)
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
[2017-04-01 18:46] VITALS: BP 137/81
[2017-04-01] MEDS ORDERED: LASIX PO ONE (19:07)
[2017-04-01 19:17] LABS: Bacteria,Urine 1+ /HPF (Negative); Bilirubin,Urine NEG (Negative); Blood,Urine SM (Negative); Color,Urine Straw (Yellow); Nitrite,Urine NEG (Negative); Protein,Urine <15 mg/dL mg/dL (Negative); Urobilinogen,Urine < 2.0 mg/dL (<2.0)
[2017-04-01 19:25] LABS: Amphetamine Screen,Urine PRESUMPTIVE NEGATIVE; Benzodiazepines Screen,Urine PRESUMPTIVE NEGATIVE; Cannabinoid Screen,Urine PRESUMPTIVE NEGATIVE; Cocaine Screen,Urine PRESUMPTIVE NEGATIVE; Methadone Screen,Urine PRESUMPTIVE NEGATIVE; Opiate Screen,Urine PRESUMPTIVE NEGATIVE
== END 2017-04-02 01:41 | disposition home or self-care (01) ==
LOC: ED 02:00
DX: F39 Unspecified mood [affective] disorder (principal); F20.9 Schizophrenia, unspecified; I10 Essential (primary) hypertension; E11.9 Type 2 diabetes mellitus without complications; K21.9 Gastro-esophageal reflux disease without esophagitis; Z87.891 Personal history of nicotine dependence; Z79.82 Long term (current) use of aspirin
CPT/HCPCS: 36415; 80048; 80307; 81001; 85025; 99284; G0480; 80320

== ENCOUNTER 2017-04-02 11:30 | Emergency (ER) | payer OTHER ==
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
[2017-04-02] MEDS ORDERED: GEODON PO ONE (17:30)
[2017-04-03] MEDS ORDERED: CLOZAPINE 50 MG PO SCH (12:15)
[2017-04-03 13:41] LABS: Basophils # (Auto) 0.1 K/mm3 (0.0-0.1); Basophils % (Auto) 0.8 % (0.0-1.8); Eosinophils # (Auto) 0.1 K/mm3 (0.0-0.4); Eosinophils % (Auto) 1.7 % (0.0-4.3); Hematocrit 35.6 % (30.3-42.9); Hemoglobin 12.1 gm/dl (10.1-14.3); Lymphocytes # (Auto) 1.7 K/mm3 (1.2-5.4); Lymphocytes % (Auto) 25.3 % (13.4-35.0); Mean Corpuscular HGB Conc 34 % (30-34); Mean Corpuscular Hemoglobin 31 pg (28-32); Mean Corpuscular Volume 92 fl (79-97); Monocytes # (Auto) 0.5 K/mm3 (0.0-0.8); Monocytes % (Auto) 7.3 % (0.0-7.3); Platelet Count 254 K/mm3 (140-440); Red Blood Count 3.89 M/mm3 (3.65-5.03); Red Cell Distribution Width 15.8 % (13.2-15.2)
[2017-04-03 13:59] LABS: Albumin 3.2 g/dL (3.9-5); BUN/Creatinine Ratio 20; Blood Urea Nitrogen 12 mg/dL (7-17); Calcium 8.8 mg/dL (8.4-10.2); Hemolysis Index 132
[2017-04-03 14:38] LABS: Alanine Aminotransferase 16 units/L (7-56)
[2017-04-03] MEDS: THORAZINE PO SCH (15:08)
[2017-04-03] MEDS: GEODON PO SCH (15:09)
[2017-04-03] MEDS: LASIX PO SCH (15:15)
[2017-04-03] MEDS: HCTZ PO SCH (15:15)
[2017-04-03] MEDS ORDERED: DESYREL PO SCH (22:00)
[2017-04-04] MEDS: GEODON PO SCH ×3 (02:24→22:37)
[2017-04-04] MEDS ORDERED: SYNTHROID PO SCH (06:00)
[2017-04-04] MEDS: THORAZINE PO SCH (10:50)
[2017-04-04] MEDS: LASIX PO SCH (10:50)
[2017-04-04] MEDS: HCTZ PO SCH (10:50)
[2017-04-04] MEDS: HALFPRIN EC PO SCH (10:50)
--- NOTE | 2017-04-04 12:50 | Progress Note ---
Subjective - Reason for Consult Consult date: 04/04/17 Reason for consult: Psychiatry Follow-up - Chief Complaint Chief complaint: "Elle" 66-year-old Afro-Angolan female, with past psychiatric history of schizoaffective disorder versus schizophrenia, presented to the emergency room yesterday because of her inability to fill her prescriptions. Today the patient is calm and cooperative during the assessment. She stated getting her prescriptions filled has been a "issue" for her. Also, she stated that she does not like [facility]at a [facility] She stated that the [facility] is infested with bed bugs and roaches. She stated that the bed bugs were bitting her last night on her hand. Per observation, there's redness on either of the patient's hands. The patient was in the ER last night (patient is delusional). Per the staff, the patient refused to put her gown on earlier in the shift. She was asked about this, she stated, "God told me to go ahead and cover myself." She was observed eating her breakfast on arrival to her room. She denies SI/HI' s and AVH's. She denies any side effects of her medications. She stated that she receive a monthly injection for her mental health dx. Mental Status Exam - Vital signs Last Vital Signs Temp 98.7 F 04/04/17 07:47 Pulse 77 04/04/17 07:47 Resp 16 04/04/17 07:47 BP 143/76 04/04/17 07:47 Pulse Ox 967 H 04/04/17 07:47 - Exam Narrative exam: MSE: Appearance: calm, cooperative Behavior: regular eye contact Speech: regular rate and tone Mood: "okay" Affect: congruent to mood Thought Process: circumstantial Thought Content: denies SI/HI's and AVH's, delusional Motor Activity: ambulatory Cognition: A/O x3 Insight: variable Judgment: variable Assessment and Plan Impression: Schizophrenia. Today the patient is calm and cooperative during the assessment. The patient is delusional. DDx: R/O Schizoaffective DO, R/O Bipolar DO Recommendation/Plan: Continue 1013 with placement to inpatient psy services. Modified the patient's medications per the initial psy assessment. Start Depakote 500 mg BID for mood and Geodon 40 mg BID for psychosis. Discussed possible metabolic side effects of Geodon with patient. VA ordered for the AM.
[2017-04-04 20:59] VITALS: BP 112/67
[2017-04-05] MEDS: LASIX PO SCH (10:42)
[2017-04-05] MEDS: GEODON PO SCH ×2 (10:42→22:05)
[2017-04-05] MEDS: HCTZ PO SCH (10:42)
[2017-04-05] MEDS: HALFPRIN EC PO SCH (12:12)
--- NOTE | 2017-04-05 12:49 | Progress Note ---
Subjective - Reason for Consult Consult date: 04/05/17 Reason for consult: Psychiatry Follow-up - Chief Complaint Chief complaint: "How are you" 66-year-old Afro-[place]ron[place] female, with past psychiatric history of schizoaffective disorder versus schizophrenia, presented to the emergency room yesterday because of her inability to fill her prescriptions. Today the patient is calm and cooperative during the assessment. She continue to state that bed bugs are bitting her. She stated that the bugs are driving her "nuts." Per the staff, no behavioral disturbance overnight. The patient denies any side effects of her medications. Mental Status Exam - Vital signs Last Vital Signs Temp 99.6 F 04/04/17 20:58 Pulse 82 04/04/17 20:58 Resp 20 04/04/17 21:00 BP 112/67 04/04/17 20:58 Pulse Ox 97 04/04/17 21:00 - Exam Narrative exam: MSE: Appearance: calm, cooperative Behavior: regular eye contact Speech: regular rate and tone Mood: "okay" Affect: congruent to mood Thought Process: circumstantial Thought Content: denies SI/HI's and AVH's, delusional Motor Activity: ambulatory Cognition: A/O x3 Insight: variable Judgment: variable Assessment and Plan Impression: Schizophrenia. Today the patient is calm and cooperative during the assessment. The patient is delusional. VA 58.3. DDx: R/O Schizoaffective DO, R/O Bipolar DO Recommendation/Plan: Continue 1013 with placement to inpatient psy services. Continue Depakote 500 mg BID for mood and Geodon 40 mg BID for psychosis. Discussed possible metabolic side effects of Geodon with patient.
== END 2017-04-05 23:00 ==
LOC: ED 11:30
DX: F23 Brief psychotic disorder (principal); I10 Essential (primary) hypertension; E11.9 Type 2 diabetes mellitus without complications; K21.9 Gastro-esophageal reflux disease without esophagitis; F20.9 Schizophrenia, unspecified
CPT/HCPCS: 36415; 80053; 80164; 82962; 85025; 99285; A9270; Q0161